=== PATIENT | female | born 1990 | race Caucasian/White ===

== ENCOUNTER → 2023-10-05 06:48 | Outpatient (REF) | payer OTHER, SELFPAY | LOC: PNTC 06:48 | PROVIDERS: ATTENDING PHYSICIAN Obstetrics & Gynecology | DX: O98.419 Viral hepatitis complicating pregnancy, unspecified trimester (principal) | CPT/HCPCS: 76811 ==

== ENCOUNTER 2023-11-20 17:36 | Inpatient (IN) | payer OTHER, SELFPAY ==
[2023-11-20 11:28] VITALS: BP 112/82
--- NOTE | 2023-11-20 13:57 | ED.GENMED ---
History of Present Illness
General
Chief Complaint: Skin Problem
Source: patient
Exam Limitations: none
Time Seen by Provider: 11/20/23 13:56
Nursing documentation reviewed up to this point in time: agreed with
Travel History
Have you had any contact with someone who has COVID-19?: No
Do you have any symptoms of coronavirus? Fever > 100 degrees, chills, cough, shortness of breath, sore throat, loss of taste or smell, muscle aches, or headache?: No
History of Present Illness
History of Present Illness:
This is a 33-year-old G1,P0 female who is 7 months with a history of IV drug abuse presenting today with left arm stump ulcerations and purulent drainage. Patient states that she has had this for the past 2 weeks. Patient had a amputation
back in January 2023 due to recurrent left upper extremity infection and had this operation done by a hand surgeon in [place]. Patient states that she has no pain in the area. Patient has had no fevers or chills, no nausea or vomiting, has
generally been feeling well. Patient saw her CIVIL ENGINEERING DIRECTOR Dr. Welch yesterday in the office who was concerned about potential deeper space infection/osteomyelitis. He did a wound culture yesterday. Dr. Welch was in contact with infectious disease who
advised and recommended to get blood cultures for this patient as well as an MRI of the left arm.
Past History
Past History
ED Past Medical History: Psychiatric (Substance abuse)
ED Past Surgical History: Other (Skin debridement of left lower forearm)
Social History
Tobacco: Smoker
Alcohol: None
Drug: Former user and IVDA
Personal: Single
Living: with family
Review of Systems
Review of Systems
All Other Systems: ROS reviewed and negative except as documented in HPI and ROS
Phy Exam
Physical Exam
Physical Exam:
General: Patient is well appearing and in no acute distress; non-toxic
Skin: Warm and dry; there are two small, erythematous and ulcerated circular lesions on the distal left arm stump with active purulent drainage.
Head: Normocephalic, atraumatic
Eyes: Sclera non-icteric. EOMs intact. PERRLA.
Cardiac: Regular rate and rhythm
Peripheral Vascular: No lower extremity edema.
Pulm: Normal respiratory effort
Abdomen: No abdominal tenderness
Musculoskeletal: Full range of motion bilateral extremities. Patient has no bony tenderness of the left arm stump.
Neuro: CN II-XII intact, no focal neurologic deficits.
Psychiatric: Appropriate mood and affect.
Course
Orders/Labs/Results
Orders:
Orders
11/20/23 14:58
Consult Infectious Disease [INFECTIOUS DISEASE CONSULT] Urgent
Consulting Provider: Ignacia Richmond
Was physician already notified: Yes
11/20/23 Dinner
Regular
At Your Request: Full Participation
Does patient need a safe tray?: No
11/20/23 15:07
CRP [C-Reactive Protein] Urgent
Complete Blood Count/With Diff Urgent
Comprehensive Metabolic Panel Urgent
Sed Rate [Erythrocyte Sed Rate] Urgent
Blood Culture Q30M
[place] Source: Blood/Venous
Specimen Description:
Blood Culture Q30M
[place] Source: Blood/Venous
Specimen Description:
11/20/23 16:08
Cefepime HCl [Maxipime] 2,000 mg IV NOW STA
11/20/23 16:46
Admit/Transfer Patient As Directed
Co-Sign Provider:
Level of Care: Inpatient admission
Assign to:: Medical/Surgical
Physician / Group: [facility]
Diagnosis: left arm ulceration
Patient Condition: Good
Reason for Hospitalization: iv abx, tx ulceration
Expected length of stay greater than two midnights?: No
ELOS- Estimated Length of Stay in days: 2
I certify the patient meets the requirements for IP care: Yes
11/20/23 16:53
Code Status As Directed
Resuscitation Status: Full Code
11/20/23 17:05
Urine Drug Abuse Screen Routine
11/20/23 17:09
MR Left Le Joint Without Urgent
Comment:
Reason For Exam: suspected osteo, 3rd trimester, purulent drainage
Recent pill cam endoscopy?: No
11/20/23 17:27
Blood Culture Stat
[place] Source: Blood/Venous
Specimen Description:
11/20/23 17:35
Wound Culture [Wound/Abscess/Other Culture] Urgent
[place] Source: Boil
Specimen Description:
Date Specimen was Collected: 11/20/23
Time Specimen was Collected: 17:38
11/20/23 17:39
Wound Culture [Wound/Abscess/Other Culture] Routine
[place] Source: Arm
Specimen Description: Left
Date Specimen was Collected: 11/20/23
Time Specimen was Collected: 17:38
11/20/23 18:00
VANCOMYCIN Pharmacy to Dose [VANCOCIN Pharmacy to Dose] 1 each Pharmacy To Prepare [Call Pharmacy To Prepare] 0 ml IV PER PROTOCOL
Abnormal Lab Results
11/20/23
15:07
RBC 3.64 L 10^6/uL
(4.20-5.40)
Hgb 11.4 L g/dL
(12.0-16.0)
Hct 32.8 L %
(37.0-47.0)
MCH 31.3 H pg
(27.0-31.0)
MPV 11.4 H fL
(7.4-10.4)
Abs Immat Gran (auto) 0.4 H 10^3/uL
(0-0.05)
Absolute Neuts (auto) 8.2 H 10^3/uL
(1.4-6.5)
Immature Gran % 3.4 H %
(0-0.5)
Neutrophils % 78.1 H %
(42.2-75.2)
Lymphocytes % 13.0 L %
(20.5-51.1)
ESR 33 H mm/hour
(0-20)
Sodium 130 L mmol/L
(135-145)
Carbon Dioxide 20 L mmol/L
(22-30)
Creatinine 0.4 L mg/dL
(0.6-1.0)
Total Protein 6.2 L g/dl
(6.3-8.2)
11/20/23 15:07
11/20/23 15:07
Vital Signs
Initial and Last Documented VS:
Initial Vital Signs
Temp Pulse Resp BP Pulse Ox
97.8 F 98 16 112/82 100
11/20/23 11:28 11/20/23 11:28 11/20/23 11:28 11/20/23 11:28 11/20/23 11:28
Last Documented Vital Signs
Temp Pulse Resp BP Pulse Ox
97.8 F 98 16 112/82 100
11/20/23 11:28 11/20/23 11:28 11/20/23 11:28 11/20/23 11:28 11/20/23 11:28
MDM/Problems Addressed
Differential Diagnosis Includes:
Differentials include cellulitis, simple cutaneous abscess, pressure ulcer, osteomyelitis, myositis
MDM/Problems Addressed:
left arm wound, drainage
Chronic conditions affecting care:
anxiety, hx of IV drug abuse, hx of recurrent infection s/p lower arm amputation
Acute Exacerbation and/or Progression of Chronic Illness:
anxiety, hx of IV drug abuse, hx of recurrent infection s/p lower arm amputation
*Pulse Oximetry
Patient hypoxic: no
*Critical Care Note
Total Time (30-74mins, 75-104mins- exclusive of procedures): Not Applicable
Data Reviewed
Review of Other/Old Records Reveals: Records (Reviewed ER physician documentation from 07/18/2023, reviewed ER physician documentation of 06/24/2023)
Source: patient and records
Patient Management
Escalation/DeEscalation of care consider admission/obs:
This is a 33-year-old G1,P0 female who is 7 months with a history of IV drug abuse presenting today with left arm stump ulcerations and purulent drainage. Patient has a history of osteomyelitis in the past. Patient saw her CIVIL ENGINEERING DIRECTOR
yesterday who is concerned about osteomyelitis/deeper infection. I spoke to her OB who spoke to infectious disease. I spoke to infectious disease doctor on-call who recommended blood cultures as well as MRI. Also spoke about antibiotic choices,
vancomycin and cefepime were ordered. Spoke to patient about why she will need to stay in the hospital, patient was reluctant about this plan at first but she eventually expressed understanding and is in agreement with plan. Spoke with OB on-call,
who recommended admission on medicine. While this is a medical issue and not an obstetric issue, medicine was not comfortable excepting this patient at this time and will see patient in consult. Patient will be admitted to L&D.
ED Attending Note
-
Portions of this chart may have been created with voice recognition software.� Occasional wrong word or��sound alike� substitutions may have occurred due to the inherent limitations of voice recognition software.
Discharge Plan
Departure
Patient Disposition: LDRP
Date of Disposition: 11/20/23
Time of Disposition: 17:31
Presentation/result/management discussed w/ accepting MD/DO: L+D
Discharge Problem:
Wound of left upper extremity
Interventions
Interventions:
*Risk Screen - Suicide Last Done: 11/20/23 16:45
*General Assessment Last Done: 11/20/23 16:45
*Neglect/Abuse Screening Last Done: 11/20/23 16:45
ED- Fall Risk Assessment Last Done: 11/20/23 15:17
*ED COVID-19 Vaccine History Last Done: 11/20/23 11:28
ED-Skin Assessment Last Done: 11/20/23 14:05
[2023-11-20 15:17] LABS: % Basophils 0.5 % (0-2); % Immature Granulocytes 3.4 % (0-0.5); % Neutrophils 78.1 % (42.2-75.2); Absolute Basophils 0.1 10^3/uL (0-0.2); Absolute Eosinophils 0.1 10^3/uL (0-0.7); Absolute Immature Granulocytes 0.4 10^3/uL (0-0.05); Absolute Lymphocytes 1.4 10^3/uL (1.2-3.4); Absolute Monocytes 0.4 10^3/uL (0.1-0.6); Absolute Neutrophils 8.2 10^3/uL (1.4-6.5); Hematocrit 32.8 % (37.0-47.0); Hemoglobin 11.4 g/dL (12.0-16.0); Mean Corp Hgb Conc. 34.8 g/dL (33.0-37.0); Mean Corpuscular Hgb 31.3 pg (27.0-31.0); Mean Corpuscular Volume 90.1 fL (81.0-99.0); Mean Platelet Volume 11.4 fL (7.4-10.4); Nucleated Red Blood Cells % 0 %; Platelet Count 152 10^3/uL (130-400); Red Blood Cell Count 3.64 10^6/uL (4.20-5.40); Red Cell Dist. Width 12.1 % (11.5-14.5); White Blood Cell Count 10.4 10^3/uL (4.8-10.8)
[2023-11-20 15:25] LABS: Erythrocyte Sed Rate 33 mm/hour (0-20)
[2023-11-20 15:31] LABS: ALT (SGPT) 29 U/L (0-35); AST (SGOT) 30 U/L (14-36); Albumin 3.5 g/dl (3.5-5.0); Alkaline Phosphatase 76 U/L (38-126); Blood Urea Nitrogen 9 mg/dl (7-17); Calcium 9.1 mg/dl (8.4-10.2); Carbon Dioxide 20 mmol/L (22-30); Chloride 105 mmol/L (98-107); Glucose 94 mg/dl (70-99); Potassium 4.1 mmol/L (3.5-5.1); Sodium 130 mmol/L (135-145); Total Bilirubin 0.3 mg/dl (0.2-1.3); Total Protein 6.2 g/dl (6.3-8.2); eGFR > 60.00
[2023-11-20 15:33] LABS: C-Reactive Protein < 5.00 mg/L (0.0-10.00)
[2023-11-20 16:57] VITALS: BMI 30.4
--- NOTE | 2023-11-20 16:58 | CON.ID ---
Consultation
-
Date/Time Consultation Requested: 11/20/23 14:58
Date/Time Consultation Performed: 11/20/23 16:58
Requesting Provider: Shiela GOULD
Performing Provider: Dr Richmond
Reason for Consultation: suspected osteomyelitis
Chief Complaint / Past History
Chief Complaint
left arm stump ulcerations and purulent drainage
History of Present Illness
Ms Jenkins is a 33 year old male G1,P0, in 3rd trimester, with history of IVDU and recent incarceration who presented here today for L arm amputation site ulceration x3 and purulent drainage which has been ongoing for about 2 weeks. Sites began as
'pimples' and then popped and drainage began. Reports amputation in January 2023 in [place]. No fevers, chills, pain, nausea or vomiting. Seen by Ob Dr Welch yesterday who contacted me; I expressed concern for possible osteomyelitis and recommended
admission. reports she did have a long course of IV antibiotics, 6 weeks, prior to amputation.
Reports she has been abstinent from drugs throughout her .
Since arrival here she has been afebrile, bp stable, wbc count 10.4, hgb 11, plt 152, L shift is noted, cr 0.4, blood cultures x2 done at the same time unclear if separate stick, third set will be done before antibiotics sta
Past History
Additional Past Medical History:
as per hpi
Additional Past Surgical History:
per hpi, I&D
Allergy History:
No Known Allergies Allergy (Verified 11/20/23 11:29)
Medications Reviewed: Yes
Social History
Tobacco: Smoker
Alcohol: None
Drug: Former User
Family History
Family History: Not Pertinent
Review of Systems
Review of Systems
General: Negative Fever or Chills
All systems: All other systems were reviewed and were negative
Vital Signs
Temp Pulse Resp BP Pulse Ox
97.8 F 98 16 112/82 100
11/20/23 11:28 11/20/23 11:28 11/20/23 11:28 11/20/23 11:28 11/20/23 11:28
Physical Exam
Physical Exam
Constitutional: No Acute Distress and Non-toxic
Cardiovascular: Regular Rate and S1/S2; Negative Murmur or Rub
Pulmonary: Clear and Symmetric; Negative Wheezes, Rales or Rhonchi
Gastrointestinal: Soft, Non Tender, Normal Bowel Sounds and Other (gravid abdomen)
Skin: Warm and Dry; Negative Rash or Jaundice
Neurological: Awake
Lab / Diagnostic Study Results
11/20/23 15:07
11/20/23 15:07
Abs Immat Gran (auto) 0.4 10^3/uL (0-0.05) H 11/20/23 15:07
Absolute Neuts (auto) 8.2 10^3/uL (1.4-6.5) H 11/20/23 15:07
Absolute Lymphs (auto) 1.4 10^3/uL (1.2-3.4) 11/20/23 15:07
Absolute Monos (auto) 0.4 10^3/uL (0.1-0.6) 11/20/23 15:07
Absolute Basos (auto) 0.1 10^3/uL (0-0.2) 11/20/23 15:07
Immature Gran % 3.4 % (0-0.5) H 11/20/23 15:07
Neutrophils % 78.1 % (42.2-75.2) H 11/20/23 15:07
Lymphocytes % 13.0 % (20.5-51.1) L 11/20/23 15:07
Monocytes % 4.0 % (1.7-9.3) 11/20/23 15:07
Eosinophils % 1.0 % (0-6) 11/20/23 15:07
Basophils % 0.5 % (0-2) 11/20/23 15:07
ESR 33 mm/hour (0-20) H 11/20/23 15:07
C-Reactive Protein < 5.00 mg/L (0.0-10.00) 11/20/23 15:07
Microbiology Results
Micro:
11/20/23 15:07 Blood Culture - Pending
Blood/Venous
11/20/23 15:07 Blood Culture - Pending
Blood/Venous
Assessment / Plan
Probable L arm osteomyelitis
Recent IVDU
Third trimester
- blood cultures x2 to be be done from separate sites, send another set today - urgent, before the vancomycin is started
- wound culture x2 obtained by me
- MRI of the amputation site without contrast
- agree with vancomycin - pharmacy to assist with dosing
- agree with cefepime
- [facility] plastic surgeon Dr Boyle at [facility] in [place] did initial surgery - will communicate with her early next week
- agree with admission
Care Review
Plan reviewed with: Nurse, Physician (Dr Welch 11/18) and Other Provider (clinical pharm - manfred)
[2023-11-20] MEDS: MAXIPIME 2000 MG IV (17:33)
[2023-11-20] MEDS: VANCOCIN 540 MG IV (19:15)
[2023-11-20 20:10] VITALS: BP 141/82
[2023-11-20 20:11] VITALS: BMI 29.9
--- NOTE | 2023-11-20 20:35 | PTCARENOTE ---
Called to see pt in Room 428 to assess pt's FHTs via doppler as per order. FHTs noted to be 150 - 155 via doppler. RN at bedside at that time performing admission assessment/interview. This RN will reassess at 4:00 am if pt is awake as per order. RN
assigned to pt to call DR at that time if needed.
[2023-11-20 22:03] VITALS: BP 123/83
--- NOTE | 2023-11-20 22:17 | PTCARENOTE ---
Patient received Vancomycin in emergency room. When medication was completed, patient stated that was itchy on her scalp and her back. Back was noted to be red. See chart for vital signs. Nurse practicer made aware and Dr. Shannon dudley made aware.
Patient declined Benadryl and stated that her itchiness subsided when Vancomycin was finished. Nurse Practitioner assessed patient at the bedside.
[2023-11-20 23:16] VITALS: BP 115/70
--- NOTE | 2023-11-20 23:33 | PTCARENOTE ---
Labor and message and delivery service pricer assessed heart tones at 1999 on 11/20/2023. Per labor and message and delivery service pricer, FHR was 150`s. Will follow provider`s order with assessing FHR.
--- NOTE | 2023-11-20 23:38 | PHA.VAN.IN ---
Assessment
- Assessment
Renal Function: Appears similar to baseline
Concomitant Antimicrobials: Cefepime
Historical Micro: History of MRSA infection
AUC Dosing Plan
- Dosing Variables
Dosing Weight (kg): 76.6
Dosing CrCl (ml/min): 125
Vd coefficient (L/kg): 0.7
- Empiric Dosing
Initial / Loading Dose: Vancomycin 2000mg administered 11/19 at 1900
Maintenance Regimen: Vancomycin 1000mg IV Q8h to start 11/20 at 0600
Estimated AUC (mcg*h/mL): 545
Estimated Peak (mcg*h/mL): 32.2
Estimated Trough (mcg/ml): 15.1
Estimated Half Life (H): 6
Pt is in 3rd trimester of and has h/o IV NAY. Pt may not follow population kinetics. Will monitor closely.
- Monitoring
No levels ordered at this time: Will order levels prior to steady state.
Pharmacokinetics Vancomycin I
- -
Patient Age: 33
Patient Sex: Female
Vancomycin Day #: 1
Indication: Skin And Soft Tissue
Requesting Provider: Dr. Richmond
Pertinent Antimicrobial Allergies:
No Known Allergies Allergy (Verified 11/20/23 11:29)
Height / Weight:
Height 5 ft 3 in
Actual Weight 76.657 kg
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
- Vital Signs / Lab Results
Temp Pulse Resp BP Pulse Ox
97.8 F 85 18 115/70 97
11/20/23 23:16 11/20/23 23:16 11/20/23 23:16 11/20/23 23:16 11/20/23 23:16
Lab Results - Hematology
11/20/23
15:07
WBC 10.4
Lab Results - Chemistry
11/20/23
15:07
BUN 9
Creatinine 0.4 L
Albumin 3.5
--- NOTE | 2023-11-21 00:29 | W.PN.UPDATE ---
Update Note
Progress Note Update
RN notified SPEECH AND LANGUAGE ASSISTANT patient had itchiness and redness on her back after she finished the Vanco dose, which was started in ED. IV Benadryl ordered. Patient seen and evaluated. Patient refused Benadryl as she feels better now. Redness on back has subsided.
Stable vitals signs. Denies stomach upset, shortness of breath. Advised RN to update the obgyn.
[2023-11-21] MEDS: MAXIPIME 2000 MG IV ×3 (01:50→18:48)
[2023-11-21] MEDS: STERILE WATER FOR INJECTION 10 ML IV ×3 (01:51→18:48)
--- NOTE | 2023-11-21 04:34 | PTCARENOTE ---
Called to see pt by RN assigned to pt on to assess FHTs via doppler as per order of Dr. Ortega. FHTs noted to be in 150s. Pt awake and OOB to bathroom at that time. Pt's nurse informed of FHT rate.
[2023-11-21] MEDS: VANCOCIN 200 IV ×3 (05:59→21:28)
--- NOTE | 2023-11-21 06:18 | PTCARENOTE ---
0600 Vancomycin hung slowly per Madhuri FIELD ADJUSTER. Patient instructed to call is she has reaction symptoms.
[2023-11-21 07:26] LABS: Amphetamines Negative (Negative); Barbiturates Negative (Negative); Benzodiazepines Negative (Negative); Buprenorphine Negative (Negative); Cocaine Negative (Negative); Marijuana Negative (Negative); Methadone Negative (Negative); Methamphetamines Negative (Negative); Opiates Negative (Negative); Phencyclidine Negative (Negative); Tricyclic Antidepressants Negative (Negative)
[2023-11-21 07:52] VITALS: BP 120/69
[2023-11-21] MEDS: PRENATAL PLUS 1 TABLET PO (10:06)
[2023-11-21] MEDS: FLUSH (NSS) 2 FLUSH IV (10:09)
--- NOTE | 2023-11-21 10:42 | W.PN.OBG.DWH ---
Today's Communication / Plan
-
MRI
1h gtt, RPR
Assessment/Plan
-
Imp 27 + wks , due for growth us, 3rd trim labs
ulceration below elbow amputation on sched for MRI this morning blood cx and wound cx pending day 1 Maxipime and vanco
Subjective Data
-
no complaints, no change in ulceration per pt, + FM, no itching, redness after 2nd dose vancomycin
Objective Data
-
Laboratory Results
11/20/23 15:07
11/20/23 15:07
Vital Signs
Temp Pulse Resp BP Pulse Ox
97.9 F 83 16 120/69 99
11/21/23 07:52 11/21/23 07:52 11/21/23 07:52 11/21/23 07:52 11/21/23 07:52
--- NOTE | 2023-11-21 11:09 | CM ---
Patient seen bedside, initial assessment completed. Patient resides with significant other in a one story home, no steps to enter. Patient is independent, denies DME, VN, or SNF history. Patient reports she used to see Dr. Cummins in [place] for a
PCP, unsure of practice name. Patient confirms pharmacy used is [facility] in [place]. CM will continue to follow for discharge planning needs.
Plan; home no needs anticipated.
--- NOTE | 2023-11-21 11:21 | PHA.VAN.FU ---
Vancomycin Assessment / Plan
- Assessment
Renal Function: No New Labs Today
In the past 24 hrs, patient has been: Afebrile
Concomitant Antimicrobials: Cefepime
- Dosing Plan
Continue: vancomycin 1000 mg q8h
Dosing Comments: dose is infusing over 90 minutes due to redness/itching after 1st dose
- Monitoring Plan
Peak Level: 11/22/23 0100 - after 4 th total dose
Trough Level: 11/23/23 0530
- Follow Up
Pharmacy will continue to follow.
Vancomycin Follow UP
- -
Patient Age: 33
Patient Sex: Female
Vancomycin Day #: 2
Indication: Skin And Soft Tissue
Requesting Provider: Dr. Richmond
Pertinent Antimicrobial Allergies:
No Known Allergies Allergy (Verified 11/20/23 11:29)
Height / Weight:
Height 5 ft 3 in
Actual Weight 76.657 kg
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
- Vital Signs / Lab Results
Temp Pulse Resp BP Pulse Ox
97.9 F 83 16 120/69 99
11/21/23 07:52 11/21/23 07:52 11/21/23 07:52 11/21/23 07:52 11/21/23 07:52
Lab Results - Hematology
11/20/23
15:07
WBC 10.4
Lab Results - Chemistry
11/20/23
15:07
BUN 9
Creatinine 0.4 L
Albumin 3.5
--- NOTE | 2023-11-21 14:14 | W.PN.ID1 ---
Date of Service
Date of Service: November 21, 2023
Today's Communication
continue current antibiotics
Assessment / Plan
Probable L arm osteomyelitis
Recent IVDU
Third trimester
- blood cultures in progress no growth to date
- wound culture in progress - pending gram stain
- MRI of the amputation site without contrast - read pending
- agree with vancomycin - pharmacy to assist with dosing
- agree with cefepime
- [facility] plastic surgeon Dr Boyle at [facility] in [place] did initial surgery - will communicate with her early next week
- agree with admission
Chief Complaint
-: Other (probable osteomyelitis)
Subjective / Review of Systems
afebrile
bp stable
no further drainage from the fistula
wound culture gram stain pending
red man syndrome - infusion rate slowed and resolved
Vital Signs / Physical Exam
Vital Signs
Vital Signs
Temp Pulse Resp BP Pulse Ox
97.9 F 83 16 120/69 99
11/21/23 07:52 11/21/23 07:52 11/21/23 07:52 11/21/23 07:52 11/21/23 07:52
Physical Exam
Constitutional: No Acute Distress
Cardiovascular: Regular Rate and S1/S2; Negative Murmur or Rub
Pulmonary: Clear and Symmetric; Negative Wheezes or Rales
Gastrointestinal: Soft, Non Tender, Non Distended and Normal Bowel Sounds
Extremities: Other (L arm no erythema, warmth or drainage; 3 fistula)
Skin: Warm and Dry; Negative Rash or Jaundice
Objective Data
Lab Data
Lab Results
11/20/23 15:07
11/20/23 15:07
ESR 33 mm/hour (0-20) H 11/20/23 15:07
Total Bilirubin 0.3 mg/dl (0.2-1.3) 11/20/23 15:07
AST 30 U/L (14-36) 11/20/23 15:07
ALT 29 U/L (0-35) 11/20/23 15:07
Alkaline Phosphatase 76 U/L (38-126) 11/20/23 15:07
C-Reactive Protein < 5.00 mg/L (0.0-10.00) 11/20/23 15:07
Most recent labs reviewed.
Micro Results:
11/20/23 17:39 Wound Culture - Pending
Arm - Left Gram Stain - Pending
11/20/23 17:27 Blood Culture - Pending
Blood/Venous
11/20/23 15:07 Blood Culture - Pending
Blood/Venous
11/20/23 15:07 Blood Culture - Pending
Blood/Venous
[2023-11-21] MEDS: FLUSH (NSS) 1 FLUSH IV (14:36)
[2023-11-21 15:26] LABS: 1 Hour after 50gm 139 mg/dl
[2023-11-21 15:50] VITALS: BP 154/92
--- NOTE | 2023-11-21 15:59 | PTCARENOTE ---
hearts done at 1200- hearts in the 150's with accels in the 160's
--- NOTE | 2023-11-21 21:51 | PTCARENOTE ---
hearts done at 2130- pt primary RN at bedside at that time. hearts noted to be in 140s to 150s.
[2023-11-21 23:55] VITALS: BP 117/69
[2023-11-22] MEDS: MAXIPIME 2000 MG IV ×3 (01:41→22:11)
[2023-11-22] MEDS: STERILE WATER FOR INJECTION 10 ML IV ×3 (01:41→22:11)
[2023-11-22 02:15] LABS: Vancomycin Peak 15.9 ug/ml (18-26)
[2023-11-22 06:24] LABS: Hematocrit 31.1 % (37.0-47.0); Hemoglobin 10.8 g/dL (12.0-16.0); Mean Corp Hgb Conc. 34.7 g/dL (33.0-37.0); Mean Corpuscular Hgb 31.7 pg (27.0-31.0); Mean Corpuscular Volume 91.2 fL (81.0-99.0); Mean Platelet Volume 11.8 fL (7.4-10.4); Platelet Count 135 10^3/uL (130-400); Red Blood Cell Count 3.41 10^6/uL (4.20-5.40); Red Cell Dist. Width 12.1 % (11.5-14.5); White Blood Cell Count 8.5 10^3/uL (4.8-10.8)
[2023-11-22 06:31] LABS: Vancomycin Trough 8.6 ug/ml (5-20)
[2023-11-22] MEDS: VANCOCIN 200 IV (06:36)
[2023-11-22 06:43] LABS: Blood Urea Nitrogen 14 mg/dl (7-17); Carbon Dioxide 23 mmol/L (22-30); Chloride 106 mmol/L (98-107); Estimated Creatinine Clearance > 125 ml/min; Glucose 94 mg/dl (70-99); Potassium 4.4 mmol/L (3.5-5.1); Sodium 130 mmol/L (135-145); eGFR > 60.00
[2023-11-22 07:25] VITALS: BP 145/74
--- NOTE | 2023-11-22 08:40 | PHA.VAN.FU ---
Addendum entered and electronically signed by Krysten Brock [facility] 11/22/23 08:44:
Adjusted infusion time to 2hrs due to infusion related redness and itching with prior dose
Original Note:
Vancomycin Assessment / Plan
- Assessment
Renal Function: Stable
WBC's are: WNL
In the past 24 hrs, patient has been: Afebrile
Concomitant Antimicrobials: Cefepime
- Assessment - Therapeutic Drug Monitoring
Extrapolated Cmax (mcg/mL): 15.9
Peak level was drawn: Appropriately
Extrapolated Cmin (mcg/mL): 8.6
Trough Drawn: Appropriately
Levels were drawn: At steady state
Calculated AUC (mcg*h/mL): 379
Calculated ke: 0.1457
Calculated half life (H): 4.8
Calculated Vd (L): 54.17
Calculated Vanc CL (ml/min): 131.59
- Dosing Plan
Adjust Regimen to: 1250mg Q8H
New Regimen Predicts: AUC (545), Peak (33.5), Trough (14)
- Monitoring Plan
No level(s) ordered at this time: Consider levels in next few days
- Follow Up
Pharmacy will continue to follow.
Vancomycin Follow UP
- -
Patient Age: 33
Patient Sex: Female
Vancomycin Day #: 3
Indication: Skin And Soft Tissue
Requesting Provider: Dr. Richmond
Pertinent Antimicrobial Allergies:
No Known Allergies Allergy (Verified 11/20/23 11:29)
Height / Weight:
Height 5 ft 3 in
Actual Weight 76.657 kg
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
- Vital Signs / Lab Results
Temp Pulse Resp BP Pulse Ox
97.7 F 64 17 145/74 96
11/22/23 07:25 11/22/23 07:25 11/22/23 07:25 11/22/23 07:25 11/22/23 07:25
Lab Results - Hematology
11/20/23 11/22/23
15:07 06:02
WBC 10.4 8.5
Lab Results - Chemistry
11/20/23 11/22/23
15:07 06:02
BUN 9 14
Creatinine 0.4 L 0.4 L
Estimated Creat Clear > 125
Albumin 3.5
Microbiology Results
11/20/23 17:27 Blood Culture - Preliminary
Blood/Venous No Growth in 24 hours- Final report to follow
11/20/23 17:39 Gram Stain - Preliminary
Arm - Left
11/20/23 15:07 Blood Culture - Preliminary
Blood/Venous No Growth in 24 hours- Final report to follow
11/20/23 15:07 Blood Culture - Preliminary
Blood/Venous No Growth in 24 hours- Final report to follow
Therapeutic Drug Monitoring
Vancomycin Peak 15.9 ug/ml (18-26) L 11/22/23 01:49
Vancomycin Trough 8.6 ug/ml (5-20) 11/22/23 06:02
[2023-11-22] MEDS: PRENATAL PLUS 1 TABLET PO (09:41)
--- NOTE | 2023-11-22 09:48 | W.PN.OBG.DWH ---
Today's Communication / Plan
-
Growth ultrasound and consult scheduled for today
3 hour glucose tolerance test
Assessment/Plan
-
IUP at 27 5/7 weeks - stable. Patient scheduled for growth ultrasound and consult later today. 3 hour GTT ordered
Subjective Data
-
Denies abdominal pain or vaginal bleeding. Notes good movement. Advised patient of 1hour blood sugar result and need for 3 hour GTT
Objective Data
-
Laboratory Results
11/22/23 06:02
11/22/23 06:02
Vital Signs
Temp Pulse Resp BP Pulse Ox
97.7 F 64 17 145/74 96
11/22/23 07:25 11/22/23 07:25 11/22/23 07:25 11/22/23 07:25 11/22/23 07:25
Abdomen-gravid, nontender
Extremities-no calf pain
[2023-11-22] MEDS: FLUSH (NSS) 2 FLUSH IV (10:01)
--- NOTE | 2023-11-22 10:39 | PTCARENOTE ---
fhr 150's pt states that she is feeling good movement.
--- NOTE | 2023-11-22 11:49 | CON.HOSP ---
Consultation
-
Date/Time Consultation Requested: 11/23/23 8:49 AM
Date/Time Consultation Performed: 11/23/23 11:49 AM
Requesting Provider: Jossie Ortega
Performing Provider: Sarah Jacobo
Reason for Consultation: changing to hospitalist service
Family Physician
-
Family Physician: Dr. Cummins (Ke[place])
Chief Complaint
-
need for IV ABX
History of Present Illness
Patient is a 33-year-old female who has a history of IV drug abuse but has been clean for the past 2 to 2-1/2 years. She is 27 weeks and was seen in the phytopathology teacher's office on 11/19/2023. She had complains of her left arm stump draining
pus. That was cultured in the BULLET CASTING OPERATOR office. She was recommended to go to the hospital for evaluation and admission and will need IV antibiotics. Dr. Richmond was consulted by BULLET CASTING OPERATOR for IV abx.
Medical History
Past Medical History
Past Medical History: Reports Other
Additional Past Medical History:
Previous history of IV drug use
History of hepatitis C positive
Past Surgical History: Reports Other
Additional Past Surgical History:
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
Social History
Tobacco: Smoker (Few cigarettes occasionally per week)
Alcohol: None
Drug: Former User (She has been clean for the last 2 to 2-1/2 years)
Family History
Family History: Reviewed & Not Pertinent
Allergies / Home Medications
Allergies reflects when Allergies were last updated in [facility].
Home Medications with original date entered in [facility]
Allergy/Medication List:
Allergies
Allergy/AdvReac Type Severity Reaction Status Date / Time
No Known Allergies Allergy Verified 11/20/23 11:29
Home Medications
1 tab PO DAILY Supplement 11/20/23
Review of Systems
-
History Source: Patient
A 12 point Review of Systems was completed except as noted: Yes
Constitutional: Denies Fever or Chills
EENT: Reports No Symptoms
Respiratory: Reports No Symptoms
Cardiac: Reports No Symptoms
Abdomen/GI: Reports No Symptoms
: Reports Other (27 weeks )
Musculoskeletal: Reports No Symptoms
Skin: Reports Other (Left arm stump covered)
Neurological: Reports No Symptoms
Endocrine: Reports No Symptoms
Hematologic/Lymphatic: Reports No Symptoms
Psych: Reports No Symptoms
Physical Exam
Vital Signs
Vital Signs
Temp Pulse Resp BP Pulse Ox
97.7 F 64 17 145/74 96
11/22/23 07:25 11/22/23 07:25 11/22/23 07:25 11/22/23 07:25 11/22/23 07:25
Physical Exam
General: Well Developed, Well Nourished and No Apparent Distress
HEENT: Normocephalic and Anicteric
Respiratory: Clear; Negative Wheezes, Rales or Rhonchi
Cardiac: S1/S2 and Regular Rhythm; Negative Murmur
GI: Soft, Non Tender, Non Distended and Normal Bowel Sounds
Genito-urinary: Other (27 weeks )
Musculoskeletal: Other (Left below elbow amputation--wound covered)
Neuro: Awake and Alert
Psych: Calm
Laboratory Results
-
Laboratory Results
11/22/23 06:02
11/22/23 06:02
Total Bilirubin 0.3 mg/dl (0.2-1.3) 11/20/23 15:07
AST 30 U/L (14-36) 11/20/23 15:07
ALT 29 U/L (0-35) 11/20/23 15:07
Alkaline Phosphatase 76 U/L (38-126) 11/20/23 15:07
Impression / Plan
-
Patient is a 33-year-old female
Osteomyelitis with MRSA wound infection of left below elbow stump--appreciate OB and infectious disease--continue Vanco and cefepime for now--discharge planning for long-term antibiotics (4 to 6 weeks)
27 weeks --care per BULLET CASTING OPERATOR--patient reports getting growth ultrasound today
History of IV drug abuse with left below elbow amputation--patient has been clean for 2 to 2-1/2 years
DVT prophylaxis
CODE STATUS--full code
--- NOTE | 2023-11-22 12:09 | CM ---
Patient seen bedside.
Patient verified she has [employer] insurance.
Discussed Home infusion with patient and also outpatient infusion.
Patient would like home infusion with [facility].
Await scripts for benefit verification thru [facility].
Patient states she would have a ride home from the hospital.
Patient excited about and knows she is having a Boy.
Patient verified she has been been clean from illicit substances for 2.5 years.
Plan: home with IV anbx once benefits verified and arranged.
--- NOTE | 2023-11-22 14:56 | W.PN.ID1 ---
Addendum entered and electronically signed by Ignacia Richmond MD 11/22/23 16:20:
Long disucssion with patient and significant other Juan Ray of risks of misuse of PICC line/drug use which would include (but are not limited to) of patient, of fetus, early delivery, stroke, endocarditis with need for heart valve
surgery, endocarditis, line infection etc. She expresses clear understanding. Will get records which she states will confirm at least 6 months of sobriety from drugs.
Original Note:
Date of Service
Date of Service: November 22, 2023
Today's Communication
await sensitivities
picc line
Assessment / Plan
L upper extremity osteomyelitis
H/o IVDU
Third trimester
- blood cultures in progress no growth at 48 hrs
- wound culture in progress - MRSA; awaiting sensitivities
- MRI of the amputation site without contrast - consistent with osteomyelitis about 1 cm
- xray done at Dr Stewart (radiology) recommendation - reviewed
- continue with vancomycin - appreciate pharmacy assistance with dosing
- note infusions over 2 hours given red man
- continue with cefepime while following cultures another day, if no GNR IDd in that time frame then will stop
- spoke with [facility] plastic surgeon Dr Pema Boyle at [facility] who did initial surgery around January of 2023; he confirmed that with third trimester he would not consider surgery at this time though revision may be a consideration
post delivery
- PICC line today
- follow clinically
Chief Complaint
-: Other (probable osteomyelitis)
Subjective / Review of Systems
afebrile
bp stable
wound culture with few presumptive MRSA
blood cultures happily no growth to date
without leukocytosis
cr stable
patient
appreciate phone call from Dr Pema Boyle [phone]; left my cell phone with him as well
Vital Signs / Physical Exam
Vital Signs
Vital Signs
Temp Pulse Resp BP Pulse Ox
97.7 F 64 17 145/74 96
11/22/23 07:25 11/22/23 07:25 11/22/23 07:25 11/22/23 07:25 11/22/23 07:25
Physical Exam
Constitutional: No Acute Distress
Cardiovascular: Regular Rate and S1/S2; Negative Murmur or Rub
Pulmonary: Clear and Symmetric; Negative Wheezes or Rales
Gastrointestinal: Soft, Non Tender, Non Distended and Normal Bowel Sounds
Extremities: Other (fistuale)
Skin: Warm and Dry; Negative Rash or Jaundice
Wound: Other (dressing clean, dry, intact)
Neurological: Awake
Objective Data
Lab Data
Lab Results
11/22/23 06:02
11/22/23 06:02
ESR 33 mm/hour (0-20) H 11/20/23 15:07
Estimated Creat Clear > 125 ml/min 11/22/23 06:02
Total Bilirubin 0.3 mg/dl (0.2-1.3) 11/20/23 15:07
AST 30 U/L (14-36) 11/20/23 15:07
ALT 29 U/L (0-35) 11/20/23 15:07
Alkaline Phosphatase 76 U/L (38-126) 11/20/23 15:07
C-Reactive Protein < 5.00 mg/L (0.0-10.00) 11/20/23 15:07
Most recent labs reviewed.
Micro Results:
11/20/23 17:39 Wound Culture - Preliminary
Arm - Left Staph aureus MRSA
Gram Stain - Preliminary
11/20/23 17:27 Blood Culture - Preliminary
Blood/Venous No Growth in 24 hours- Final report to follow
11/20/23 15:07 Blood Culture - Preliminary
Blood/Venous No Growth in 24 hours- Final report to follow
11/20/23 15:07 Blood Culture - Preliminary
Blood/Venous No Growth in 24 hours- Final report to follow
[2023-11-22] MEDS: FLUSH (NSS) 1 FLUSH IV (15:01)
[2023-11-22] MEDS: VANCOCIN 275 MG IV ×2 (15:01→22:11)
[2023-11-22 15:31] VITALS: BP 143/82
--- NOTE | 2023-11-22 16:32 | PTCARENOTE ---
Patient provided contact information for surgeon that performed her previous LUE extremity and requested info to be placed in her chart:
Dr. Boyle/Lucretia GOULD
[phone]
email:
[email or web address]
--- NOTE | 2023-11-22 17:02 | PTCARENOTE ---
fhr's 148, pt states good movement.
--- NOTE | 2023-11-22 18:26 | VATNOTE ---
midline exchanged for a PICC per MD order.
[2023-11-22 23:00] VITALS: BP 112/70
[2023-11-23] MEDS: STERILE WATER FOR INJECTION 10 ML IV (05:36)
[2023-11-23] MEDS: VANCOCIN 275 MG IV ×3 (05:36→22:29)
[2023-11-23] MEDS: MAXIPIME 2000 MG IV (05:36)
[2023-11-23 07:10] LABS: Blood Urea Nitrogen 11 mg/dl (7-17); Calcium 8.7 mg/dl (8.4-10.2); Carbon Dioxide 24 mmol/L (22-30); Chloride 104 mmol/L (98-107); Estimated Creatinine Clearance > 125 ml/min; Glucose 85 mg/dl (70-99); Sodium 131 mmol/L (135-145); eGFR > 60.00
[2023-11-23 07:21] LABS: Glucose for Tolerance Test 85 mg/dl
[2023-11-23 07:49] VITALS: BP 116/70
--- NOTE | 2023-11-23 07:54 | W.PN.OBG.DWH ---
Today's Communication / Plan
-
Complete 3h GTT
Patient encouraged to arrange remainder of OB appointments and growth ultrasounds before discharge
Assessment/Plan
-
IUP at 28 weeks -stable. Complete 3h GTT. discussed follow up if 3 hour GTT positive for gestational diabetes. Patient instructed to call office and arrange follow up OB appointments, next one due in 2 weeks, also she should call testing
center and schedule growth ultrasounds for q 4 weeks.
Osteomyolitis-as per ID/medicine services
Subjective Data
-
No abdominal pain or vaginal bleeding. Notes good movement. is in midst of doing her 3h GTT this AM. Had consult with MFM yesterday and growth ultrasound, reviewed with patient, she has no questions
Objective Data
-
Laboratory Results
11/22/23 06:02
11/23/23 06:29
Vital Signs
Temp Pulse Resp BP Pulse Ox
97.6 F 87 18 116/70 97
11/23/23 07:49 11/23/23 07:49 11/23/23 07:49 11/23/23 07:49 11/23/23 07:49
Abdomen-gravid, nontender
extremities-no calf pain
[2023-11-23] MEDS: PRENATAL PLUS 1 TABLET PO (08:11)
[2023-11-23] MEDS: FEOSOL 325 MG PO (08:11)
[2023-11-23 08:54] LABS: Glucose for Tolerance Test 187 mg/dl
--- NOTE | 2023-11-23 09:12 | PHA.VAN.FU ---
Vancomycin Assessment / Plan
- Assessment
Renal Function: Stable
WBC's are: WNL
In the past 24 hrs, patient has been: Afebrile
Concomitant Antimicrobials: cefepime
- Dosing Plan
Continue: Vanc 1250mg Q8H - infused over 2 hours
- Monitoring Plan
Peak Level: 11/23 01:30
Trough Level: 11/23 05:30
Monitoring Comments: levels to be drawn after 5th maintenance dose
- Follow Up
Pharmacy will continue to follow.
Vancomycin Follow UP
- -
Patient Age: 33
Patient Sex: Female
Vancomycin Day #: 4
Indication: Skin And Soft Tissue
Requesting Provider: Dr. Richmond
Pertinent Antimicrobial Allergies:
NKDA
Height / Weight:
Height 5 ft 3 in
Actual Weight 76.657 kg
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
- Vital Signs / Lab Results
Temp Pulse Resp BP Pulse Ox
97.6 F 87 18 116/70 97
11/23/23 07:49 11/23/23 07:49 11/23/23 07:49 11/23/23 07:49 11/23/23 07:49
Lab Results - Hematology
11/20/23 11/22/23
15:07 06:02
WBC 10.4 8.5
Lab Results - Chemistry
11/20/23 11/22/23 11/23/23
15:07 06:02 06:29
BUN 9 14 11
Creatinine 0.4 L 0.4 L 0.4 L
Estimated Creat Clear > 125 > 125
Albumin 3.5
Microbiology Results
11/20/23 17:39 Wound Culture - Final
Arm - Left Staph aureus MRSA
Gram Stain - Final
11/20/23 17:27 Blood Culture - Preliminary
Blood/Venous No Growth in 48 hours- Final report to follow
11/20/23 15:07 Blood Culture - Preliminary
Blood/Venous No Growth in 48 hours- Final report to follow
11/20/23 15:07 Blood Culture - Preliminary
Blood/Venous No Growth in 48 hours- Final report to follow
Therapeutic Drug Monitoring
Vancomycin Peak 15.9 ug/ml (18-26) L 11/22/23 01:49
Vancomycin Trough 8.6 ug/ml (5-20) 11/22/23 06:02
[2023-11-23 10:09] LABS: Glucose for Tolerance Test 143 mg/dl
--- NOTE | 2023-11-23 10:34 | PTCARENOTE ---
FHR 140-148. Pt states good movement
[2023-11-23 11:12] LABS: Glucose for Tolerance Test 106 mg/dl
--- NOTE | 2023-11-23 11:20 | CM ---
Addendum entered by Latasha Aponte 11/23/23 11:46:
Spoke with [facility], patient needs to be discussed with the company team to see if they should proceed with the risk assessment before accepting patient for infusion.
[facility] will let us know if they will proceed with the assessment.
If they are able to do the assessment, it will not be done until tomorrow, as they would need to schedule an in-person assessment.
Original Note:
Referral sent to [facility] for IV anbx.
PICC line in.
Spoke with [facility] they will need to do a in person risk assessment prior to agreeing to home IV anbx.
Plan: Possible home IV anbx, await [facility].
--- NOTE | 2023-11-23 12:34 | W.PN.ID1 ---
Date of Service
Date of Service: November 23, 2023
Today's Communication
- plan 6 weeks of IV vancomycin through 12/30; follow up in about 6 weeks sooner if needed
- weekly labs to be sent to my office
- has follow up with Dr Boyle ; would like to arrange for dc tomorrow evening after 5:30 vanc trough if possible - this would streamline lab draws for patient
- Dr Boyle has commented that telehealth visit could be arranged if the discharge is not possible
Assessment / Plan
L upper extremity osteomyelitis
H/o IVDU
Third trimester
- blood cultures in progress remain no growth
- wound culture in progress - MRSA; vanc [place] 2
- minimal data on daptomycin in (case reports only); continue vancomycin
- MRI of the amputation site without contrast - consistent with osteomyelitis about 1 cm
- continue with vancomycin - appreciate pharmacy assistance with dosing
- note infusions over 2 hours given red man
- stop cefepime
- 11/22 spoke with [facility] plastic surgeon Dr Pema Boyle at [facility] in [place] who did initial surgery around January of 2023; he confirmed that with third trimester he would not consider surgery at this time though revision may be a
consideration post delivery
- PICC line
- plan 6 weeks of IV vancomycin through 12/30; follow up in about 6 weeks sooner if needed
- weekly labs to be sent to my office
- has follow up with Dr Boyle ; would like to arrange for dc tomorrow evening after 5:30 vanc trough if possible - this would streamline lab draws for patient
- Dr Boyle has commented that telehealth visit could be arranged if the discharge is not possible
- follow clinically
Chief Complaint
-: Other (probable osteomyelitis)
Subjective / Review of Systems
afebrile
bp stable
cr stable
vanc tr 8.6
sensi back
tiny spot of purulent drainge from one fistula
Vital Signs / Physical Exam
Vital Signs
Vital Signs
Temp Pulse Resp BP Pulse Ox
97.6 F 87 18 116/70 97
11/23/23 07:49 11/23/23 07:49 11/23/23 07:49 11/23/23 07:49 11/23/23 07:49
Physical Exam
Constitutional: No Acute Distress
Cardiovascular: Regular Rate and S1/S2; Negative Murmur or Rub
Pulmonary: Clear and Symmetric; Negative Wheezes or Rales
Gastrointestinal: Soft, Non Tender, Normal Bowel Sounds and Other (gravid abd)
Skin: Warm and Dry; Negative Rash or Jaundice
Neurological: Awake
Lines: PICC
Objective Data
Lab Data
Lab Results
11/22/23 06:02
11/23/23 06:29
ESR 33 mm/hour (0-20) H 11/20/23 15:07
Estimated Creat Clear > 125 ml/min 11/23/23 06:29
Total Bilirubin 0.3 mg/dl (0.2-1.3) 11/20/23 15:07
AST 30 U/L (14-36) 11/20/23 15:07
ALT 29 U/L (0-35) 11/20/23 15:07
Alkaline Phosphatase 76 U/L (38-126) 11/20/23 15:07
C-Reactive Protein < 5.00 mg/L (0.0-10.00) 11/20/23 15:07
Most recent labs reviewed.
Micro Results:
11/20/23 17:39 Wound Culture - Final
Arm - Left Staph aureus MRSA
Gram Stain - Final
11/20/23 17:27 Blood Culture - Preliminary
Blood/Venous No Growth in 48 hours- Final report to follow
11/20/23 15:07 Blood Culture - Preliminary
Blood/Venous No Growth in 48 hours- Final report to follow
11/20/23 15:07 Blood Culture - Preliminary
Blood/Venous No Growth in 48 hours- Final report to follow
--- NOTE | 2023-11-23 12:39 | W.PN.HOSP.TC ---
Today's Communication/Plan
-
d/c planning
Assessment / Plan
Assessment / Plan
Patient is a 33-year-old female
MRSA Osteomyelitis with MRSA wound infection of left below elbow stump--appreciate OB and infectious disease--continue Vanco and cefepime for now, likely vanco at d/c--discharge planning for long-term antibiotics (4 to 6 weeks)
28 weeks --care per SHERIFF'S SERGEANT--patient reports s/p growth ultrasound
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
DVT prophylaxis
CODE STATUS--full code
Anticipated Discharge: 24 - 48 hours
Subjective/Interval History
-
Date of Service: November 23, 2023
pt doing OK
Objective Data
-
Labs:
Laboratory Results
11/23/23
06:29
Sodium 131 L
Potassium 4.0
Chloride 104
Carbon Dioxide 24
BUN 11
Creatinine 0.4 L
Glucose 85
Calcium 8.7
Vital Signs:
max temp for 24 hours
11/22/23
15:31
Temp 97.8 F
Vital Signs
Temp Pulse Resp BP Pulse Ox
97.6 F 87 18 116/70 97
11/23/23 07:49 11/23/23 07:49 11/23/23 07:49 11/23/23 07:49 11/23/23 07:49
I&O
11/22/23 11/23/23 11/24/23
06:59 06:59 06:59
Intake Total 680 / 680 1475 / 1475
Balance 680 / 680 7705 / 1475
Review of Systems
-
All other systems: Reviewed and negative
Physical Exam
-
General: Well Developed, Well Nourished and No Apparent Distress
HEENT: Normocephalic and Atraumatic
Respiratory: Clear to Auscultation; Negative Wheezes or Rhonchi
Cardiac: Regular Rhythm and S1/S2; Negative Murmur
GI: Soft, Nontender, Nondistended and Normal Bowel Sounds
Genito-urinary: Other (gravid uterus)
Musculoskeletal: No Clubbing, No Cyanosis, No Edema and Other (left arm stump wrapped)
Neuro: Awake
Psych: Calm
--- NOTE | 2023-11-23 15:17 | W.PN.UPDATE ---
Update Note
Progress Note Update
Patient seen earlier today.
Per nurse FHR 140-148bpm. She report normal movement
I did review her 3hr GTT 1 abnl value. Overall has passed the test
I also spoke briefly with ID earlier this afternoon. The plan is for outpatient Vancomycin for up to 6 weeks. patient does get red man syndrome with this so the infusion has been slow. I did d/w ID that Benadryl can be used prn at home.
[2023-11-23 15:24] VITALS: BP 119/69
[2023-11-23 15:35] LABS: Syphilis/T. pallidum Ab Reflex Negative (Negative)
--- NOTE | 2023-11-23 19:59 | PTCARENOTE ---
heart tones 148-160 bpm. Pt reports good movement.
[2023-11-23 23:04] VITALS: BP 112/64
[2023-11-24 03:33] LABS: Vancomycin Peak 20.9 ug/ml (18-26)
[2023-11-24 03:46] LABS: Blood Urea Nitrogen 11 mg/dl (7-17); Calcium 8.5 mg/dl (8.4-10.2); Carbon Dioxide 22 mmol/L (22-30); Chloride 104 mmol/L (98-107); Estimated Creatinine Clearance > 125 ml/min; Glucose 123 mg/dl (70-99); Potassium 3.6 mmol/L (3.5-5.1); Sodium 130 mmol/L (135-145); eGFR > 60.00
--- NOTE | 2023-11-24 07:46 | PTCARENOTE ---
22:00 dose of Vancocin completed administering at 01:15. Peak was drawn at 02:33. Notified pharm and [employer]RA[employer]ORER Salvador Groves the time the Vancocin completed administering. TERRAZZO LABORER spoke to pharmacy. TERRAZZO LABORER stated 'per pharmacy, hold the dose (06:00) till the
trough comes.' New orders placed. Plan of care ongoing.
[2023-11-24 08:00] VITALS: BP 117/76
[2023-11-24 08:33] LABS: Vancomycin Trough 9.4 ug/ml (5-20)
--- NOTE | 2023-11-24 08:57 | PHA.VAN.FU ---
Addendum entered and electronically signed by Gia Fierro Slick 11/25/23 08:39:
Correction: dose is infused over 2 hours, not 8 hours
Original Note:
Vancomycin Assessment / Plan
- Assessment
Renal Function: Stable
In the past 24 hrs, patient has been: Afebrile
Concomitant Antimicrobials: cefepime
- Assessment - Therapeutic Drug Monitoring
Extrapolated Cmax (mcg/mL): 30.2
Peak level was drawn: Appropriately (drawn ~2H after end of previous infusion [administered over 2H])
Extrapolated Cmin (mcg/mL): 11.9
Trough Drawn: Appropriately (trough was drawn late but prior to next administered dose)
Levels were drawn: At steady state (levels drawn after 5th maintenance dose)
Calculated AUC (mcg*h/mL): 459
Calculated ke: 0.1431
Calculated half life (H): 4.8
Calculated Vd (L): 56.8 (0.74 L/kg)
Calculated Vanc CL (ml/min): 135
- Dosing Plan
Continue: Vanc 1250mg Q8H infused over 8 hours
Trough drawn late but prior to dose - extrapolates to an appropriate level
AUC & half-life are appropriate
- Monitoring Plan
Level(s) appropriate: Recheck trough at minimum of weekly intervals, Repeat sooner for changes in renal function or clinical status
Next Level Due (Date): ~11/30
- Follow Up
Pharmacy will continue to follow.
Vancomycin Follow UP
- -
Patient Age: 33
Patient Sex: Female
Vancomycin Day #: 5
Indication: Skin And Soft Tissue
Requesting Provider: Dr. Richmond
Pertinent Antimicrobial Allergies:
NKDA
Height / Weight:
Height 5 ft 3 in
Actual Weight 76.657 kg
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
- Vital Signs / Lab Results
Temp Pulse Resp BP Pulse Ox
98.2 F 85 18 112/64 97
11/23/23 23:04 11/23/23 23:04 11/23/23 23:04 11/23/23 23:04 11/23/23 23:04
Lab Results - Hematology
11/22/23
06:02
WBC 8.5
Lab Results - Chemistry
11/22/23 11/23/23 11/24/23
06:02 06:29 02:33
BUN 14 11 11
Creatinine 0.4 L 0.4 L 0.4 L
Estimated Creat Clear > 125 > 125 > 125
Microbiology Results
11/20/23 17:27 Blood Culture - Preliminary
Blood/Venous No Growth in 72 hours- Final report to follow
11/20/23 15:07 Blood Culture - Preliminary
Blood/Venous No Growth in 72 hours- Final report to follow
11/20/23 15:07 Blood Culture - Preliminary
Blood/Venous No Growth in 72 hours- Final report to follow
11/20/23 17:39 Wound Culture - Final
Arm - Left Staph aureus MRSA
Gram Stain - Final
Therapeutic Drug Monitoring
Vancomycin Peak 20.9 ug/ml (18-26) 11/24/23 02:33
Vancomycin Trough 9.4 ug/ml (5-20) 11/24/23 08:08
--- NOTE | 2023-11-24 09:09 | W.PN.HOSP.TC ---
Today's Communication/Plan
-
waiting for [facility]
Assessment / Plan
Assessment / Plan
Patient is a 33-year-old female
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
28 weeks --care per PROSTHETIC DENTIST--patient reports s/p growth ultrasound
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
DVT prophylaxis
CODE STATUS--full code
Anticipated Discharge: 24 - 48 hours
Subjective/Interval History
-
Date of Service: November 24, 2023
pt waiting to meet with [facility]
Objective Data
-
Labs:
Laboratory Results
11/24/23
02:33
Sodium 130 L
Potassium 3.6
Chloride 104
Carbon Dioxide 22
BUN 11
Creatinine 0.4 L
Glucose 123 H
Calcium 8.5
Vital Signs:
max temp for 24 hours
11/23/23
23:04
Temp 98.2 F
Vital Signs
Temp Pulse Resp BP Pulse Ox
98.2 F 85 18 112/64 97
11/23/23 23:04 11/23/23 23:04 11/23/23 23:04 11/23/23 23:04 11/23/23 23:04
I&O
11/23/23 11/24/23 11/25/23
06:59 06:59 06:59
Intake Total 8385 / 9065 960 / 960
Balance 1475 / 1475 960 / 960
Review of Systems
-
All other systems: Reviewed and negative
Physical Exam
-
General: Well Developed, Well Nourished and No Apparent Distress
HEENT: Normocephalic and Atraumatic
Respiratory: Clear to Auscultation; Negative Wheezes or Rhonchi
Cardiac: Regular Rhythm and S1/S2; Negative Murmur
GI: Soft, Nontender, Nondistended and Normal Bowel Sounds
Musculoskeletal: No Clubbing, No Cyanosis and No Edema
Neuro: Awake and Alert
Psych: Calm
--- NOTE | 2023-11-24 09:14 | WOUNDNOTE ---
L ARM STUMP WITH STITCH VISIBLE.
--- NOTE | 2023-11-24 09:16 | WOUNDNOTE ---
L ARM STUMP MEDIAL SIDE
--- NOTE | 2023-11-24 09:17 | WOUNDNOTE ---
TANA RN note: Patient admitted with wound of L upper extremity.
See H&P for complete history. Recently incarcerated, 7 months .
PMH: IVDA, 2 debridement's of L arm, amputation of L lower arm January 2023, anxiety and substance abuse.
Wound Location and type/assessment: Patient admitted with: L arm stump with 2 shallow openings medially, laterally with raised red opening(fistula), stitch visible in center. No complaint of pain, no odor, serosanguineous drainage of small amt. L
arm wound culture + MRSA. MRI showed osteomyelitis of L upper extremity. Patient reports wounds started out looking like pimples. Reviewed I&D note, patient to follow up with Plastic Surgeon Dr. Boyle post discharge. PICC line in place, waiting for
[facility] approval for home IV abx. per case management note. Patient asking this specification writer how to clean wound, instructed by I&D to wash with chlorhexidine weekly, will clarify.
Appetite: Good.
Pressure redistribution devices in place: Accumax, is ad dick.
Plan: Recommend to L arm wounds: Clean with Vashe, Mupirocin cream to open wounds, followed by Adaptic, dry gauze dressing daily, secure with Spandage if needed. Spoke with Dr. Richmond regarding the above, clarified washing regimen regarding
chlorhexidine and approved wound care orders. Dr. Blevins also wants Mupirocin to be smeared inside nostrils once a day, nurse Will aware. Extensive teaching done with patient regarding the above. Patient states she will be able to change own dressings
and wash as recommended. Called [facility] for Vashe, asked nurse Will to put with wound care supplies at bedside. updated nurse on wound care. Updated care plan, discharge instructions and will follow as needed. Note to case management of equipment
requested for discharge: Can do own wound care.
[2023-11-24] MEDS: VANCOCIN 275 MG IV ×3 (09:34→22:12)
[2023-11-24] MEDS: FEOSOL 325 MG PO (09:34)
[2023-11-24] MEDS: PRENATAL PLUS 1 TABLET PO (09:34)
--- NOTE | 2023-11-24 09:57 | PTCARENOTE ---
0815 visited pt in her room and did FHR 150's, pt states feeling good movement
--- NOTE | 2023-11-24 10:37 | W.PN.OBG.DWH ---
Today's Communication / Plan
-
-No additional OB recs for today
-Pt given OB/PTL warning signs. Instructed her to let us know if any OB concerns arise
-Pt has OB follow-up scheduled for after discharge, December 01
15mins spent on this visit
Assessment/Plan
-
33yo at 28+0 weeks -stable.
Completed 3h GTT-- 1 out of 4 elevated. Discussed results with patient. Not meeting criteria for GDM, but encouraged pt to be mindful of excessive glucose/carb intake. No further glucose monitoring indicated.
Patient has her follow up OB appointments scheduled, next one 16MAY
Also has testing center and schedule growth ultrasounds scheduled for q 4 weeks.
Osteomyolitis-as per ID/medicine services
Subjective Data
-
Doing well. No OB complaints. Denies VB, lof, ctxs. +FM.
Objective Data
-
Laboratory Results
11/22/23 06:02
11/24/23 02:33
Vital Signs
Temp Pulse Resp BP Pulse Ox
98.2 F 85 18 112/64 97
11/23/23 23:04 11/23/23 23:04 11/23/23 23:04 11/23/23 23:04 11/23/23 23:04
FHR 150s this AM, per [facility] Will[facility]
--- NOTE | 2023-11-24 12:11 | CM ---
Addendum entered by Latasha Aponte 11/24/23 14:01:
TCB from [facility] form [facility] [phone], they should be able to accept pending insurance varification.
Per [facility] if accepted cannot start until late tomorrow or Wednesday.
Original Note:
TC from [facility].
Per [facility] they will be unable to provide services.
Referral faxed to [facility], await TCB.
Patient updated re above.
Plan:home with IV anbx once set with infusion company.
--- NOTE | 2023-11-24 13:37 | W.PN.ID1 ---
Date of Service
Date of Service: November 24, 2023
Today's Communication
appreciate case management assistance with locating home infusion company
Assessment / Plan
L upper extremity osteomyelitis
H/o IVDU
Third trimester
- blood cultures in progress remain no growth
- wound cx: MRSA
- MRI of the amputation site without contrast - consistent with osteomyelitis about 1 cm
- continue with vancomycin - appreciate pharmacy assistance with dosing
- note infusions over 2 hours given red man
- has PICC line
- plan 6 weeks of IV vancomycin through 12/30; follow up in about 6 weeks sooner if needed
- weekly labs to be sent to my office
- has follow up with Dr Boyle ; would like to arrange for dc tomorrow evening after 5:30 vanc trough if possible - this would streamline lab draws for patient
- Dr Boyle has commented that telehealth visit could be arranged if the discharge is not possible
- follow clinically
Chief Complaint
-: Other (probable osteomyelitis)
Subjective / Review of Systems
afebrile
bp stable
appreciate pharmacy assistance with dosing
auc [phone]
vanc being infused over 2 hrs
Vital Signs / Physical Exam
Vital Signs
Vital Signs
Temp Pulse Resp BP Pulse Ox
98.2 F 90 16 117/76 97
11/24/23 08:00 11/24/23 08:00 11/24/23 08:00 11/24/23 08:00 11/24/23 08:00
Physical Exam
Constitutional: No Acute Distress
Cardiovascular: Regular Rate and S1/S2; Negative Murmur or Rub
Pulmonary: Clear and Symmetric; Negative Wheezes or Rales
Gastrointestinal: Soft, Non Tender, Non Distended and Normal Bowel Sounds
Extremities: Other (fistuale without purulent drainage today; stitch still visible in 1)
Skin: Warm and Dry; Negative Rash or Jaundice
Lines: PICC
Objective Data
Lab Data
Lab Results
11/22/23 06:02
11/24/23 02:33
ESR 33 mm/hour (0-20) H 11/20/23 15:07
Estimated Creat Clear > 125 ml/min 11/24/23 02:33
Total Bilirubin 0.3 mg/dl (0.2-1.3) 11/20/23 15:07
AST 30 U/L (14-36) 11/20/23 15:07
ALT 29 U/L (0-35) 11/20/23 15:07
Alkaline Phosphatase 76 U/L (38-126) 11/20/23 15:07
C-Reactive Protein < 5.00 mg/L (0.0-10.00) 11/20/23 15:07
Most recent labs reviewed.
Micro Results:
11/20/23 17:27 Blood Culture - Preliminary
Blood/Venous No Growth in 72 hours- Final report to follow
11/20/23 15:07 Blood Culture - Preliminary
Blood/Venous No Growth in 72 hours- Final report to follow
11/20/23 15:07 Blood Culture - Preliminary
Blood/Venous No Growth in 72 hours- Final report to follow
11/20/23 17:39 Wound Culture - Final
Arm - Left Staph aureus MRSA
Gram Stain - Final
Care Review
Plan reviewed with: Physician (Dr Welch - outpatient cx)
[2023-11-24 16:00] VITALS: BP 120/73
[2023-11-24 16:41] VITALS: BP 120/73
--- NOTE | 2023-11-24 16:55 | PTCARENOTE ---
FHT's 160 with doppler
[2023-11-24 23:48] VITALS: BP 112/62
[2023-11-25] MEDS: VANCOCIN 275 MG IV (05:46)
[2023-11-25 06:24] LABS: Hematocrit 27.6 % (37.0-47.0); Hemoglobin 9.6 g/dL (12.0-16.0); Mean Corp Hgb Conc. 34.8 g/dL (33.0-37.0); Mean Corpuscular Hgb 31.8 pg (27.0-31.0); Mean Corpuscular Volume 91.4 fL (81.0-99.0); Mean Platelet Volume 12.1 fL (7.4-10.4); Platelet Count 118 10^3/uL (130-400); Red Blood Cell Count 3.02 10^6/uL (4.20-5.40); Red Cell Dist. Width 12.3 % (11.5-14.5)
[2023-11-25 06:58] LABS: Blood Urea Nitrogen 10 mg/dl (7-17); Calcium 8.6 mg/dl (8.4-10.2); Carbon Dioxide 26 mmol/L (22-30); Chloride 105 mmol/L (98-107); Estimated Creatinine Clearance > 125 ml/min; Glucose 89 mg/dl (70-99); Potassium 4.1 mmol/L (3.5-5.1); Sodium 131 mmol/L (135-145); eGFR > 60.00
[2023-11-25 07:30] VITALS: BP 134/69
--- NOTE | 2023-11-25 08:38 | PHA.VAN.FU ---
Vancomycin Assessment / Plan
- Assessment
Renal Function: Stable
WBC's are: WNL
In the past 24 hrs, patient has been: Afebrile
- Dosing Plan
Continue: Vanc 1250mg Q8H infused over 2 hours
- Monitoring Plan
Level(s) appropriate: Recheck trough at minimum of weekly intervals, Repeat sooner for changes in renal function or clinical status
Next Level Due (Date): ~11/30, may consider sooner
- Follow Up
Pharmacy will continue to follow.
Vancomycin Follow UP
- -
Patient Age: 33
Patient Sex: Female
Vancomycin Day #: 6
Indication: Skin And Soft Tissue
Requesting Provider: Dr. Richmond
Pertinent Antimicrobial Allergies:
NKDA
Height / Weight:
Height 5 ft 3 in
Actual Weight 76.657 kg
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
- Vital Signs / Lab Results
Temp Pulse Resp BP Pulse Ox
97.9 F 74 17 134/69 98
11/25/23 07:30 11/25/23 07:30 11/25/23 07:30 11/25/23 07:30 11/25/23 07:30
Lab Results - Hematology
11/25/23
05:23
WBC 9.0
Lab Results - Chemistry
11/23/23 11/24/23 11/25/23
06:29 02:33 05:23
BUN 11 11 10
Creatinine 0.4 L 0.4 L 0.4 L
Estimated Creat Clear > 125 > 125 > 125
Microbiology Results
11/20/23 17:27 Blood Culture - Preliminary
Blood/Venous No Growth in 4 days- Final report to follow
11/20/23 15:07 Blood Culture - Preliminary
Blood/Venous No Growth in 4 days- Final report to follow
11/20/23 15:07 Blood Culture - Preliminary
Blood/Venous No Growth in 4 days- Final report to follow
11/20/23 17:39 Wound Culture - Final
Arm - Left Staph aureus MRSA
Gram Stain - Final
Therapeutic Drug Monitoring
Vancomycin Peak 20.9 ug/ml (18-26) 11/24/23 02:33
Vancomycin Trough 9.4 ug/ml (5-20) 11/24/23 08:08
--- NOTE | 2023-11-25 08:46 | CM ---
TC from [facility].
They will be out to see patient at her home at 2 pm today.
Patient will receive 2 pm dose of Vanco at home.
Plan: home with [facility]
fax# [phone]
[2023-11-25] MEDS: PRENATAL PLUS 1 TABLET PO (08:56)
[2023-11-25] MEDS: BACTROBAN 2% OINTMENT 1 APPLIC TOPICAL (08:56)
[2023-11-25] MEDS: FEOSOL 325 MG PO (08:56)
--- NOTE | 2023-11-25 10:04 | W.PN.HOSP.TC ---
Today's Communication/Plan
-
d/c
Assessment / Plan
Assessment / Plan
Patient is a 33-year-old female
ok for d/c
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
28 weeks --care per SENIOR ENTERPRISE ARCHITECT--patient reports s/p growth ultrasound
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
DVT prophylaxis
CODE STATUS--full code
Anticipated Discharge: Today
Subjective/Interval History
-
Date of Service: November 25, 2023
pt ready to go
Objective Data
-
Labs:
Laboratory Results
11/25/23
05:23
WBC 9.0
Hgb 9.6 L
Hct 27.6 L
Plt Count 118 L
Sodium 131 L
Potassium 4.1
Chloride 105
Carbon Dioxide 26
BUN 10
Creatinine 0.4 L
Glucose 89
Calcium 8.6
Vital Signs:
max temp for 24 hours
11/24/23
16:00
Temp 98.0 F
Vital Signs
Temp Pulse Resp BP Pulse Ox
97.9 F 74 17 134/69 98
11/25/23 07:30 11/25/23 07:30 11/25/23 07:30 11/25/23 07:30 11/25/23 07:30
I&O
11/24/23 11/25/23 11/26/23
06:59 06:59 06:59
Intake Total 960 / 960 2400 / 2400
Balance 960 / 960 2400 / 2400
Review of Systems
-
All other systems: Reviewed and negative
Physical Exam
-
General: Well Developed, Well Nourished and No Apparent Distress
HEENT: Normocephalic and Atraumatic
Respiratory: Clear to Auscultation; Negative Wheezes, Rales, Rhonchi or Crackles
Cardiac: Regular Rhythm and S1/S2; Negative Murmur
GI: Soft, Nontender, Nondistended and Normal Bowel Sounds
Musculoskeletal: No Clubbing, No Cyanosis, No Edema and Other (left arm stump wrapped)
[2023-11-25 11:30] VITALS: BP 123/74
--- NOTE | 2023-11-25 12:46 | PTCARENOTE ---
Pt DC'd to home. Pt given DC instructions and verbalized understanding. Pt DC'd with PICC in place for continued IV ABT.
--- NOTE | 2023-11-25 16:18 | W.DCSUMMARY ---
Discharge Summary
Discharge Data
Date of Admission: 11/20/23
Date of Discharge: 11/25/23
-
Pending Results: No
Hospital Course
Primary care physician : Aiden Cummins
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
Hospital Course : Patient was a 33-year-old female with a history of IV drug abuse that resulted in a left below elbow amputation. She is 27 weeks and was seen in the [facility] CONTR[employer] OFFICER office for left arm stump drainage. She was recommended by her
assurance manager insurance to come to the hospital for evaluation and admission for IV antibiotics.
Problem #1: MRSA osteomyelitis with MRSA wound infection of left below elbow stump. Cultures from the assurance manager insurance office showed MRSA. Cultures here also showed MRSA. Patient was seen in consultation by ID. Vancomycin and cefepime were continued
followed by discontinuation of cefepime. Patient will need 4 to 6 weeks of IV antibiotics of vancomycin.
Problem #2: 28 weeks . Obstetrics was consulted. Patient had growth ultrasound and 3-hour glucose tolerance test. She should follow-up with gynecology at her regularly scheduled appointments.
Problem #3: History of IV drug abuse and below left elbow amputation. Patient has not had a history of being clean for 2 to 2 and 1/2half years. PICC line was placed. [facility] accepted the patient.
Patient is stable for discharge home at this time. If there are any questions regarding this dictation or her hospital stay, please not hesitate to call. Our office number is [phone].
Discharge Plan
-
Patient Disposition: Home (Routine Discharge)
Discharge Diagnosis/Procedures: MRSA osteomyelitis with MRSA wound infection of the left below elbow stump, 28 weeks
Diet: As tolerated and Regular
Activity: As tolerated
Driving Restrictions: As prior to admission
Bathing Restrictions: None
Other Services: VN
Activity Restrictions/Additional Instructions:
Wound Care Instructions
L arm stump: Clean with Vashe then apply small amount of topical mupirocin(bactroban) to open areas followed by adaptic and dry gauze daily, can secure with Spandage as needed.
Nostrils: thin layer of Mupirocin daily
Chlorhexidine wash as recommended by Dr. Richmond
Follow up With Plastic Surgeon Dr. Boyle as directed.
Referrals:
Aiden Cummins, DO [Non-Admitting Privileges] - in less than 1 week
Additional Discharge Medication Instructions: Continue antibiotics through December 31, 2023
Prescriptions:
New
mupirocin 2 % Ointment
1 applic topical DAILY Qty: 15 0RF
Vancomycin [Vancocin] 1250 MG
0.9% Sodium Chloride 250 ml [Nss] 250 ML
137.5 mls/hr IV Q8H
cont through 12/30
Ordered By: Sarah Jacobo MD
Last Taken: 11/25/23 05:46 275 mls
Protocol: None
Protocol Text:
DOSING PER PHARMACY
Please contact pharmacy with any questions.
Continued
1 tab PO DAILY
Discharge Orders:
Discharge Patient (As Directed); Ordered 11/25/23
Ordered By: Sarah Jacobo
Discharge Date and Time
Discharge Date/Time: 11/25/23 13:14
Print Language: [id number]
== END 2023-11-25 13:14 | disposition home or self-care (01) | DRG 832 ==
LOC: 4 WEST ACU 17:36
PROVIDERS: Obstetrics & Gynecology; Physician Assistant; ADMITTING PHYSICIAN Internal Medicine; ATTENDING PHYSICIAN Internal Medicine; CONSULT PHYSICIAN Student in an Organized Health Care Education/Training Program; EMERGENCY PHYSICIAN Emergency Medicine
DX: O99.891 Other specified diseases and conditions complicating pregnancy (principal); M86.8X2 Other osteomyelitis, upper arm; O99.333 Smoking (tobacco) complicating pregnancy, third trimester; B95.61 Methicillin susceptible Staphylococcus aureus infection as the cause of diseases classified elsewhere; F19.11 Other psychoactive substance abuse, in remission; Z89.212 Acquired absence of left upper limb below elbow; Z3A.28 28 weeks gestation of pregnancy
CPT/HCPCS: 71045; 73080; 73218; 76816; 80048; 80053; 80202; 80306; 82950; 82951; 85025; 85027; 85652; 86140; 86780; 87040; 87070; 87147; 87186; 87205; 96374; 96375; 96376; 99284; 99406

== ENCOUNTER → 2023-12-20 14:22 | Outpatient (REF) | payer OTHER, SELFPAY | LOC: PNTC 14:22 | PROVIDERS: ATTENDING PHYSICIAN Obstetrics & Gynecology | DX: O99.320 Drug use complicating pregnancy, unspecified trimester (principal) | CPT/HCPCS: 76816 ==

== ENCOUNTER → 2024-01-17 14:31 | Outpatient (REF) | payer OTHER, SELFPAY | LOC: PNTC 14:31 | PROVIDERS: ATTENDING PHYSICIAN Obstetrics & Gynecology | DX: O35.5XX0 Maternal care for (suspected) damage to fetus by drugs, not applicable or unspecified (principal) | CPT/HCPCS: 76816 ==

== ENCOUNTER 2024-02-15 09:15 | Inpatient (IN) | payer OTHER, SELFPAY ==
[2024-02-15 09:38] VITALS: BP 117/72; BMI 33.8
[2024-02-15] MEDS: LR 1000 IV ×2 (11:30→23:06)
[2024-02-15] MEDS: VANCOCIN 300 ML IV (11:30)
[2024-02-15] MEDS: VANCOCIN 300 MG IV (11:30)
[2024-02-15 11:37] LABS: % Basophils 0.5 % (0-2); % Eosinophils 0.5 % (0-6); % Immature Granulocytes 4.4 % (0-0.5); % Monocytes 6.1 % (1.7-9.3); % Neutrophils 75.5 % (42.2-75.2); Absolute Immature Granulocytes 0.4 10^3/uL (0-0.05); Absolute Lymphocytes 1.1 10^3/uL (1.2-3.4); Absolute Monocytes 0.5 10^3/uL (0.1-0.6); Absolute Neutrophils 6.6 10^3/uL (1.4-6.5); Hemoglobin 9.9 g/dL (12.0-16.0); Mean Corp Hgb Conc. 34.1 g/dL (33.0-37.0); Mean Corpuscular Hgb 28.8 pg (27.0-31.0); Mean Corpuscular Volume 84.3 fL (81.0-99.0); Mean Platelet Volume 13.2 fL (7.4-10.4); Nucleated Red Blood Cells % 0 %; Platelet Count 177 10^3/uL (130-400); Red Blood Cell Count 3.44 10^6/uL (4.20-5.40); Red Cell Dist. Width 13.1 % (11.5-14.5); White Blood Cell Count 8.7 10^3/uL (4.8-10.8)
[2024-02-15] MEDS: CYTOTEC 50 MICROGRAM PO ×2 (12:27→16:41)
[2024-02-15 12:31] LABS: Amphetamines Negative (Negative); Barbiturates Negative (Negative); Benzodiazepines Negative (Negative); Buprenorphine Negative (Negative); Cocaine Negative (Negative); Marijuana Negative (Negative); Methadone Negative (Negative); Methamphetamines Negative (Negative); Opiates Negative (Negative); Phencyclidine Negative (Negative); Tricyclic Antidepressants Negative (Negative)
[2024-02-15] MEDS: SUBLIMAZE 100 MCG EPIDURAL (21:04)
[2024-02-15] MEDS: FENTANYL/BUPIVACAINE 100 EPIDURAL (21:05)
[2024-02-16] MEDS: VANCOCIN 300 ML IV ×3 (00:08→23:52)
[2024-02-16] MEDS: VANCOCIN 300 MG IV ×3 (00:08→23:52)
[2024-02-16] MEDS: PITOCIN 30 UNITS/NSS 500 ML IV (00:14)
[2024-02-16] MEDS: LR 1000 IV ×2 (04:19→12:09)
[2024-02-16] MEDS: FENTANYL/BUPIVACAINE 100 EPIDURAL ×2 (04:43→11:54)
[2024-02-16] MEDS: ANCEF 10 IV (16:46)
[2024-02-16] MEDS: ZITHROMAX INFUSION 250 IV (16:46)
[2024-02-16] MEDS: BICITRA 30 ML PO (16:51)
[2024-02-16] MEDS: TYLENOL 1000 MG PO (16:52)
[2024-02-16 17:35] LABS: Cord ABG Comment CORD BLOOD
[2024-02-16 17:40] LABS: B.E. Cord ABG -9.2 mMOL/L; HCO3 Cord ABG 21.3 mmol/L; O2 Saturation % Cord ABG 10.3 %; PCO2 Cord ABG 64 mmHg; PO2 Cord ABG 7 mmHg; pH Cord ABG 7.13
[2024-02-16 18:24] VITALS: BP 117/72; BP 99/55
[2024-02-16 18:31] VITALS: BP 137/87
--- NOTE | 2024-02-16 18:34 | W.IMMPOSTOP ---
Addendum entered and electronically signed by Corina Sheppard DO 02/16/24 19:09:
Additional findings: Otherwise, normal-appearing ovaries and tubes b/l; Needle count was incorrect (thought to be an error in recording the number of sutures on the table), so XRay was done without any retained instruments, sponges or needles seen.
Original Note:
Surgical Immed Post Op Note
-
Primary Surgeon: Corina Sheppard DO
Assisting Surgeon: Nina Pedro, assist
Pre-op Diagnosis: IUP at 40wks, arrest of descent, failed VAVD, h/o MRSA, H/o IV drug use, Hepatitis C
Post-op Diagnosis: term , delivered, s/p PLTCS; bilateral benign-appearing ovarian cysts, s/p right ovarian cystectomy x2; h/o MRSA; H/o IV drug use; Hepatitis C
Procedure Performed: PLTCS, right ovarian cystectomy x2
Anesthesia Type: GETA
Specimen / Cultures: cord gases, placenta, right ovarian cyst reyes
Estimated Blood Loss: 800ml
Complications: none
Operative Findings: Epidural anesthesia not adequate for surgery, so patient underwent GETA; Male fetus, cephalic, ascynclitic head position, no nuchal cord; clear amniotic fluid; Apgars 1, 2, 8; venous cord gas: 7.13, BE -9; uterus with several
tiny subserosal fibroids, but otherwise normal-appearing; intermittent uterine atony-- given IM Methergine x1 dose, IV pitocin and Hemabate directly into the uterus x1 dose, with good response; several tiny, thin-walled, serous-filled ovarian cysts
bilaterally-- 2 of the larger cysts were excised from the right ovary (~5cm and 3cm).
Bernabe Sheppard DO
[2024-02-16 18:45] VITALS: BP 151/86
[2024-02-16] MEDS: DILAUDID 0.5 MG IV ×3 (18:54→20:04)
[2024-02-16 19:00] VITALS: BP 150/92
[2024-02-16] MEDS: TORADOL 15 MG IV (19:53)
[2024-02-16] MEDS: BENADRYL 25 MG IV (20:06)
[2024-02-17] MEDS: TYLENOL 650 MG PO ×2 (00:30→22:42)
[2024-02-17] MEDS: MORPHINE SULFATE 4 MG IV (00:30)
[2024-02-17] MEDS: TORADOL 15 MG IV ×3 (01:36→14:18)
[2024-02-17 06:35] LABS: Hemoglobin 8.6 g/dL (12.0-16.0); Mean Corp Hgb Conc. 34.4 g/dL (33.0-37.0); Mean Corpuscular Hgb 28.8 pg (27.0-31.0); Mean Corpuscular Volume 83.6 fL (81.0-99.0); Mean Platelet Volume 12.8 fL (7.4-10.4); Platelet Count 154 10^3/uL (130-400); Red Blood Cell Count 2.99 10^6/uL (4.20-5.40); Red Cell Dist. Width 13.2 % (11.5-14.5); White Blood Cell Count 16.5 10^3/uL (4.8-10.8)
[2024-02-17 06:44] LABS: ALT (SGPT) 22 U/L (0-35); AST (SGOT) 41 U/L (14-36); Albumin 2.4 g/dl (3.5-5.0); Alkaline Phosphatase 82 U/L (38-126); Blood Urea Nitrogen 17 mg/dl (7-17); Calcium 7.8 mg/dl (8.4-10.2); Carbon Dioxide 21 mmol/L (22-30); Chloride 107 mmol/L (98-107); Estimated Creatinine Clearance 83 ml/min; Glucose 92 mg/dl (70-99); Potassium 4.2 mmol/L (3.5-5.1); Sodium 132 mmol/L (135-145); Total Bilirubin 0.4 mg/dl (0.2-1.3); Total Protein 4.5 g/dl (6.3-8.2); eGFR > 60.00
[2024-02-17] MEDS: ROXICODONE 5 MG PO ×2 (07:08→21:00)
--- NOTE | 2024-02-17 07:48 | W.PN.ANS.POP ---
Anesthesia Post Operative
- Anesthesia Post Op Note
Vital Signs Stable-See Nursing Note: Yes
Airway Patent: Yes
Adequate Pain Control: Yes
Change in Mental Status: No
Current Postoperative Nausea & Vomiting: No
Anesthesia Complications: No
General Anesthetic Recall: No
Unplanned Admission: No
Post Op Hydration Adequate: Yes
[2024-02-17] MEDS: PRENATAL PLUS 1 TABLET PO (09:00)
[2024-02-17] MEDS: CLEOCIN 600 MG PO ×3 (09:00→22:07)
[2024-02-17] MEDS: FEOSOL 325 MG PO (09:00)
[2024-02-17] MEDS: ROXICODONE 10 MG PO ×2 (10:46→15:29)
[2024-02-17 12:56] LABS: Hematocrit 23.6 % (37.0-47.0); Hemoglobin 8.1 g/dL (12.0-16.0); Mean Corp Hgb Conc. 34.3 g/dL (33.0-37.0); Mean Corpuscular Hgb 28.6 pg (27.0-31.0); Mean Corpuscular Volume 83.4 fL (81.0-99.0); Mean Platelet Volume 12.4 fL (7.4-10.4); Platelet Count 150 10^3/uL (130-400); Red Blood Cell Count 2.83 10^6/uL (4.20-5.40); Red Cell Dist. Width 13.2 % (11.5-14.5); White Blood Cell Count 13.2 10^3/uL (4.8-10.8)
[2024-02-17 13:10] LABS: ALT (SGPT) 21 U/L (0-35); AST (SGOT) 40 U/L (14-36); Albumin 2.5 g/dl (3.5-5.0); Alkaline Phosphatase 83 U/L (38-126); Blood Urea Nitrogen 19 mg/dl (7-17); Calcium 7.8 mg/dl (8.4-10.2); Carbon Dioxide 23 mmol/L (22-30); Chloride 107 mmol/L (98-107); Estimated Creatinine Clearance 75 ml/min; Glucose 110 mg/dl (70-99); Sodium 132 mmol/L (135-145); Total Bilirubin 0.3 mg/dl (0.2-1.3); Total Protein 4.6 g/dl (6.3-8.2); eGFR > 60.00
--- NOTE | 2024-02-17 16:16 | CM ---
CM met with new parents Kavya and Juan
Parents have named their son Mani
Mom plans to breast feed her son - has a breast pump
Parents report they have supplies for infant including a crib and car seat
Mom reports she has support at home with FOB and paternal grandmother
Parents plan to use [facility]
Mom plans to follow up at [facility] [place]
Mom acknowledged she has a history of drug abuse - reports she has been drug free for over 2 1/2 years. Reports she has been a client of [facility] in [place] and has a therapist through that center
Mom's tox screen was negative on admission
Mec screen for infant was negative
Mom reports she is enrolled in the WIC program
She reports she has been involved with the Maternal and Child Health VN program through [facility]. She reports her VN is Latoya [phone]. CM called Latoya Klein acknowledged Mom is enrolled in program - she plans to see her at her
home approx 1 wk post d/c. The program follows with family until is 18 months old.
CM will continue to follow family for d/c needs
[2024-02-18] MEDS: ROXICODONE 5 MG PO (01:20)
[2024-02-18] MEDS: MYLICON 80 MG PO (01:38)
[2024-02-18] MEDS: ROXICODONE 10 MG PO ×4 (06:05→19:59)
[2024-02-18] MEDS: CLEOCIN 600 MG PO ×3 (08:34→21:52)
[2024-02-18] MEDS: PRENATAL PLUS 1 TABLET PO (08:35)
[2024-02-18] MEDS: FEOSOL 325 MG PO (08:35)
[2024-02-18] MEDS: MOTRIN 600 MG PO ×2 (08:53→17:07)
[2024-02-18] MEDS: TYLENOL 650 MG PO ×3 (08:53→21:52)
[2024-02-18 12:09] LABS: Syphilis/T. pallidum Ab Reflex Negative (Negative)
--- NOTE | 2024-02-18 12:16 | CM ---
CM met with pt at bedside. FOB present
Given info for PCP at The [facility] family clinic located at the [facility] - receptive to information
Mom reports she plans to contact Latoya from the [facility] Maternal Child VN program next week to arrange visit
Parents receptive to info given. Questions answered
CM available as needed
[2024-02-19] MEDS: MOTRIN 600 MG PO ×2 (01:38→09:04)
[2024-02-19] MEDS: ROXICODONE 10 MG PO (05:42)
[2024-02-19] MEDS: TYLENOL 650 MG PO ×2 (05:48→12:34)
--- NOTE | 2024-02-19 08:49 | VATNOTE ---
Right PICC removed 37cm length catheter retrieved, occlusive dressing applied.
[2024-02-19] MEDS: FEOSOL 325 MG PO (09:01)
[2024-02-19] MEDS: PRENATAL PLUS 1 TABLET PO (09:01)
[2024-02-19] MEDS: CLEOCIN 600 MG PO (09:01)
[2024-02-19] MEDS: SENOKOT-S 1 TABLET PO (09:01)
[2024-02-19] MEDS: MYLICON 80 MG PO (09:01)
[2024-02-19] MEDS: ROXICODONE 5 MG PO ×2 (12:46)
--- NOTE | 2024-02-19 13:38 | W.DS.TRANS ---
DC Summary - Mini Lab Operator
-
Discharge Instructions:
Discharge Diagnosis/Procedures primary cs
Instructions:
Stand-Alone Forms: [facility] Delivery
Changes to Home Medications: No
Discharge Medications:
DC Medications w/[facility]
vitamin-ferrous fumarate 28 mg iron-folic acid 800 mcg tablet ( Tablet) 1 tab PO DAILY Supplement 02/15/24
ibuprofen 600 mg tablet 600 mg PO Q6HPRN PRN cramps/pain #90 tabs 02/19/24
oxycodone 5 mg tablet 5 mg PO Q4HPRN PRN pain rated 6-8/10 #10 tabs 02/19/24
Home Medication Changes
Pending Results: No
Total time spent discharging patient (in min): 20
== END 2024-02-19 14:50 | disposition home or self-care (01) | DRG 788 ==
LOC: LDRP 09:15
PROVIDERS: Obstetrics & Gynecology; ADMITTING PHYSICIAN Obstetrics & Gynecology
PROC: 10D00Z1 Extraction of Products of Conception, Low, Open Approach (ICD-10-PCS; 2024-02-16)
PROC: 0UB00ZZ Excision of Right Ovary, Open Approach (ICD-10-PCS; 2024-02-16)
DX: O42.02 Full-term premature rupture of membranes, onset of labor within 24 hours of rupture (principal); Z3A.39 39 weeks gestation of pregnancy; Z37.0 Single live birth; N83.201 Unspecified ovarian cyst, right side; O34.83 Maternal care for other abnormalities of pelvic organs, third trimester; O34.13 Maternal care for benign tumor of corpus uteri, third trimester; D25.2 Subserosal leiomyoma of uterus
CPT/HCPCS: 88304; 88307; 36415; 71045; 72170; 80053; 80306; 82803; 85025; 85027; 86780; 86850; 86900; 86901; 99406

== ENCOUNTER 2024-02-26 21:08 | Observation (INO) | payer OTHER, SELFPAY ==
[2024-02-26] VITALS (13 sets, daily range): BP systolic 141–171; BP diastolic 76–109; BMI 31.3
[2024-02-26 17:10] LABS: Urine Albumin Trace (Neg - Trace); Urine Bilirubin Negative (Negative); Urine Character Clear (Clear); Urine Color Yellow; Urine Glucose Negative (Negative); Urine Ketone Negative (Negative); Urine Leukocyte 2+ (Negative); Urine Nitrite Negative (Negative); Urine Occult Blood 3+ (Negative); Urine Urobilinogen Negative (Neg - 1+)
[2024-02-26 17:15] LABS: Hematocrit 30.4 % (37.0-47.0); Hemoglobin 10.1 g/dL (12.0-16.0); Mean Corp Hgb Conc. 33.2 g/dL (33.0-37.0); Mean Corpuscular Hgb 29.3 pg (27.0-31.0); Mean Corpuscular Volume 88.1 fL (81.0-99.0); Mean Platelet Volume 10.6 fL (7.4-10.4); Platelet Count 393 10^3/uL (130-400); Red Blood Cell Count 3.45 10^6/uL (4.20-5.40); Red Cell Dist. Width 13.8 % (11.5-14.5); White Blood Cell Count 8.2 10^3/uL (4.8-10.8)
[2024-02-26 17:18] LABS: Urine Squamous Cell 16-20 /LPF (Few); Urine White Cell 26-30 /HPF (0-5)
[2024-02-26 17:23] LABS: ALT (SGPT) 24 U/L (0-35); AST (SGOT) 36 U/L (14-36); Albumin 4.3 g/dl (3.5-5.0); Alkaline Phosphatase 95 U/L (38-126); Blood Urea Nitrogen 18 mg/dl (7-17); Calcium 9.4 mg/dl (8.4-10.2); Carbon Dioxide 25 mmol/L (22-30); Chloride 106 mmol/L (98-107); Estimated Creatinine Clearance 88 ml/min; Glucose 95 mg/dl (70-99); Magnesium 2.1 mg/dl (1.6-2.3); Phosphorus 4.8 mg/dl (2.5-4.5); Potassium 4.3 mmol/L (3.5-5.1); Sodium 138 mmol/L (135-145); Total Bilirubin 0.4 mg/dl (0.2-1.3); Total Protein 6.9 g/dl (6.3-8.2); eGFR > 60.00
[2024-02-26 17:49] LABS: % Basophils 0.7 % (0-2); % Eosinophils 1.3 % (0-6); % Lymphocytes 18.5 % (20.5-51.1); % Monocytes 5.9 % (1.7-9.3); % Neutrophils 67.6 % (42.2-75.2); Absolute Basophils 0.1 10^3/uL (0-0.2); Absolute Eosinophils 0.1 10^3/uL (0-0.7); Absolute Immature Granulocytes 0.5 10^3/uL (0-0.05); Absolute Lymphocytes 1.5 10^3/uL (1.2-3.4); Absolute Monocytes 0.5 10^3/uL (0.1-0.6); Absolute Neutrophils 5.5 10^3/uL (1.4-6.5); Nucleated Red Blood Cells % 0 %
[2024-02-26] MEDS: TRANDATE 20 MG IV (18:14)
[2024-02-26 19:29] LABS: D-Dimer 2.06 ug/mlFEU (0.00-0.50)
--- NOTE | 2024-02-26 19:43 | ED.GENMED ---
History of Present Illness
General
Chief Complaint: Breathing Problem
Source: patient
Exam Limitations: none
Time Seen by Provider: 02/26/24 16:12
Nursing documentation reviewed up to this point in time: agreed with
History of Present Illness
History of Present Illness:
Assumed care from Dr. Yair Kwong. Patient sent in by Dr. Joshua Quiles, RIB PULLER, for shortness of breath and pain at her suture site. She reports wheezing when she lays down and swollen extremities. She was being treated for preeclampsia.
Past History
Past History
ED Past Medical History: Psychiatric (Substance abuse)
ED Past Surgical History: Other (Skin debridement of left lower forearm)
Social History
Tobacco: Smoker
Alcohol: None
Drug: Former user and IVDA
Personal: Single
Living: with family
Review of Systems
Review of Systems
Allergies reviewed?: Yes
All Other Systems: Not applicable
Constitutional: Reports no symptoms
EENT: Reports no symptoms
Respiratory: Reports trouble breathing
Cardiac: Reports no symptoms; Denies chest pain
ABD/GI: Reports no symptoms
: Reports no symptoms
Musculoskeletal: Reports no symptoms
Skin: Reports no symptoms
Neurological: Reports no symptoms
Endocrine: Reports no symptoms
Hematologic/Lymphatic: Reports no symptoms
Psychiatric: Reports no symptoms
Phy Exam
Physical Exam
Physical Exam:
Physical Exam
General: no apparent distress, not acutely ill
Neck: supple. no meningeal signs. normal posterior pharynx
Heart: s1/s2 regular rate and rhythm, no murmur. equal radial
pulses.
HEENT: Pupils equal round reactive to light, EOMI
Lungs: no acute respiratory distress. clear bilaterally
Abdomen: normal bowel sounds. not tender. no CVAT
Neuro: alert and oriented. no focal neurological deficits cranial nerves II through XII intact
Skin: no rash
Psychiatric: well kept. interactive and cooperative
Extremities: no edema. no calf tenderness. negative homans. good distal pulses
Course
Orders/Labs/Results
Orders:
Orders
02/26/24 16:32
CR Chest - 2 Views Urgent
Comment:
Reason For Exam: sob
US Periph Venous UPPER Ext RT Urgent
Comment:
Reason For Exam: swelling, recent picc line
02/26/24 16:57
Complete Blood Count/With Diff Urgent
Comprehensive Metabolic Panel Urgent
Magnesium Urgent
Phos [Phosphorus] Urgent
Protein/Creat Ratio (Random) Urgent
Date Specimen was Collected: 02/26/24
Time Specimen was Collected: 16:38
Comment: ADD ON
Uric Acid Urgent
Urinalysis Urgent
Date Specimen was Collected: 02/26/24
Time Specimen was Collected: 16:38
Urine Microscopic Urgent
Date Specimen was Collected: 02/26/24
Time Specimen was Collected: 16:38
02/26/24 17:44
Labetalol HCl [Trandate] 20 mg IV NOW STA
02/26/24 18:58
D-Dimer Urgent
Abnormal Lab Results
02/26/24 02/26/24
16:57 18:58
RBC 3.45 L 10^6/uL
(4.20-5.40)
Hgb 10.1 L g/dL
(12.0-16.0)
Hct 30.4 L %
(37.0-47.0)
MPV 10.6 H fL
(7.4-10.4)
Abs Immat Gran (auto) 0.5 H 10^3/uL
(0-0.05)
Immature Gran % 6.0 H %
(0-0.5)
Lymphocytes % 18.5 L %
(20.5-51.1)
D-Dimer 2.06 H ug/mlFEU
(0.00-0.50)
BUN 18 H mg/dl
(7-17)
Phosphorus 4.8 H mg/dl
(2.5-4.5)
Urine Occult Blood 3+ A
(Negative)
Ur Leukocyte Esterase 2+ A
(Negative)
Urine RBC 11-15 A /HPF
(0-2)
Urine WBC 26-30 A /HPF
(0-5)
02/26/24 16:57
02/26/24 16:57
Vital Signs
Initial and Last Documented VS:
Initial Vital Signs
Temp Pulse Resp BP Pulse Ox
98.2 F 92 20 171/109 94
02/26/24 15:08 02/26/24 15:08 02/26/24 15:08 02/26/24 15:08 02/26/24 15:08
Last Documented Vital Signs
Temp Pulse Resp BP Pulse Ox
97.9 F 79 18 149/83 100
02/26/24 21:34 02/26/24 21:59 02/26/24 21:34 02/26/24 21:59 02/26/24 20:14
MDM/Problems Addressed
Differential Diagnosis Includes:
PE, pneumonia, DVT, preeclampsia
MDM/Problems Addressed:
33-year-old female with shortness of breath with laying down, resolved. She denies any chest pain. Preeclampsia. Do not suspect PE. Ultrasound negative for DVT patient stable, admit to [facility], Dr. Quiles.
*Critical Care Note
Total Time (30-74mins, 75-104mins- exclusive of procedures): Not Applicable
ED Attending Note
-
Portions of this chart may have been created with voice recognition software.� Occasional wrong word or��sound alike� substitutions may have occurred due to the inherent limitations of voice recognition software.
Discharge Plan
Departure
Patient Disposition: [facility]
Date of Disposition: 02/26/24
Time of Disposition: 20:45
Presentation/result/management discussed w/ accepting MD/DO: laboratory apparatus glass blower Dr. Quiles
Patient with high blood pressure during this ER visit?: Yes
Condition: Good
Discharge Problem:
Pre-eclampsia, Edema of right upper extremity
Interventions
Interventions:
*Risk Screen - Suicide Last Done: 02/26/24 16:22
*General Assessment Last Done: 02/26/24 16:22
*Neglect/Abuse Screening Last Done: 02/26/24 16:22
ED- Fall Risk Assessment Last Done: 02/26/24 16:23
*ED COVID-19 Vaccine History Last Done: 02/26/24 16:22
*Nursing Disposition Last Done: 02/26/24 21:29
ED- Cardiac Assessment Last Done: 02/26/24 16:30
ED- Pulmonary Assessment Last Done: 02/26/24 16:30
Discharge Date and Time
Discharge Date/Time: 02/26/24 21:30
[2024-02-26] MEDS: TRANDATE 200 MG PO (21:59)
[2024-02-26 22:17] LABS: Protein/creatinine Ratio 0.5; Urine Protein 23 mg/dl
[2024-02-26] MEDS: LR 1000 IV (23:03)
[2024-02-26] MEDS: MAGNESIUM SULFATE 100 IV (23:05)
[2024-02-26] MEDS: MAGNESIUM SULFATE 40 GRAM 1000 IV (23:30)
[2024-02-27] MEDS: TRANDATE 200 MG PO (08:01)
[2024-02-27] MEDS: TYLENOL 1000 MG PO (09:28)
--- NOTE | 2024-02-27 10:58 | CM ---
CM met with pt and SP/Juan
They reside in [place] with their son with OSTE
She delivered her son on 02/15 via and is doing well at home with care
Pt is independent with her ADLs and no DMEs
Pt has a L. below elbow amp secondary to IV drug use hx
Pt has been sober for 2 and half years
She currently is working with the Maternal and Child Health program
Latoya [phone] is her visiting nurse
She does not have a PCP
During last admission, she was provided with residency Clinic info and she plans to follow up for intake
She currently is under care of Dr Jossie Ortega with appt scheduled for this week
[place]
Discussion with nursing- anticipate dc home later today
No dc needs noted
Pt is OBS- OBS form completed
Copy provided
Discharge Disposition- home, no needs- SO will transport
== END 2024-02-27 17:48 | disposition home or self-care (01) ==
LOC: LDRP 21:08
PROVIDERS: Emergency Medicine; ADMITTING PHYSICIAN Obstetrics & Gynecology; EMERGENCY PHYSICIAN Emergency Medicine; FAMILY PHYSICIAN Obstetrics & Gynecology
DX: O14.15 Severe pre-eclampsia, complicating the puerperium (principal); R06.02 Shortness of breath; R06.2 Wheezing; M79.89 Other specified soft tissue disorders; F17.200 Nicotine dependence, unspecified, uncomplicated; M79.601 Pain in right arm
CPT/HCPCS: 71046; 80053; 81003; 81015; 82570; 83735; 84100; 84156; 84550; 85025; 85379; 93971; 96374; 99285

== ENCOUNTER → 2024-04-06 12:16 | Outpatient (REF) | payer OTHER, SELFPAY ==
[2024-04-06 13:12] LABS: % Basophils 0.6 % (0-2); % Eosinophils 1.4 % (0-6); % Immature Granulocytes 0.6 % (0-0.5); % Lymphocytes 24.9 % (20.5-51.1); % Monocytes 5.2 % (1.7-9.3); % Neutrophils 67.3 % (42.2-75.2); Absolute Eosinophils 0.1 10^3/uL (0-0.7); Absolute Lymphocytes 1.7 10^3/uL (1.2-3.4); Absolute Monocytes 0.4 10^3/uL (0.1-0.6); Absolute Neutrophils 4.7 10^3/uL (1.4-6.5); Hematocrit 35.8 % (37.0-47.0); Hemoglobin 11.9 g/dL (12.0-16.0); Mean Corp Hgb Conc. 33.2 g/dL (33.0-37.0); Mean Corpuscular Hgb 26.6 pg (27.0-31.0); Mean Corpuscular Volume 79.9 fL (81.0-99.0); Nucleated Red Blood Cells % 0 %; Red Blood Cell Count 4.48 10^6/uL (4.20-5.40); Red Cell Dist. Width 13.9 % (11.5-14.5)
[2024-04-06 13:20] LABS: INR 0.96; PT 12.7 Sec (11.4-14.6)
[2024-04-06 13:28] LABS: Blood Urea Nitrogen 15 mg/dl (7-17); Calcium 10.3 mg/dl (8.4-10.2); Carbon Dioxide 20 mmol/L (22-30); Chloride 103 mmol/L (98-107); Glucose 100 mg/dl (70-99); Potassium 4.2 mmol/L (3.5-5.1); Sodium 141 mmol/L (135-145); eGFR > 60.00
== END ==
LOC: REG 12:16
PROVIDERS: ATTENDING PHYSICIAN Plastic Surgery Surgery of the Hand
DX: Z89.212 Acquired absence of left upper limb below elbow (principal)
CPT/HCPCS: 36415; 80048; 85025; 85610; 85730